=== PATIENT | female | born 1990 | race Caucasian/White ===

== ENCOUNTER → 2016-03-15 | Outpatient (CLI) | payer BC, MEDICAID ==
[~2016-03-15] MED LIST: DOCU10ELUD PO; IBUP80TA PO; MULTTAB20 PO; PERCOCET PO
[2016-03-15 13:18] LABS: BASO % 0.2 % (0.0-1.0); EOS % 0.3 % (0.0-3.0); LARGE UNSTAINED CELL # 0.2 K/mm3 (0.0-0.4); LARGE UNSTAINED CELL % 1.6 % (0.0-4.0); LYMPH # 1.7 K/mm3 (1.5-6.5); LYMPH % 15.8 % (24.0-44.0); MEAN CORPUSCULAR HEMOGLOBIN 30.9 pg (27.0-33.0); MEAN CORPUSCULAR HGB CONC 34.2 g/dl (32.0-36.5); MEAN CORPUSCULAR VOLUME 90.3 fl (80.0-96.0); MONO # 0.4 K/mm3 (0.0-0.8); MONO % 4.1 % (0.0-5.0); NEUTROPHILS # 8.1 K/mm3 (1.8-7.7); NEUTROPHILS % 77.9 % (36.0-66.0); PLATELET COUNT, AUTOMATED 237 k/mm3 (150-450); RED CELL DISTRIBUTION WIDTH 12.8 % (11.5-14.5); WHITE BLOOD COUNT 10.4 K/mm3 (4.0-10.0)
== END | disposition home or self-care (01) ==
LOC: M LAB 12:10
PROVIDERS: ATTEND Specialist
DX: Z34.82 Encounter for supervision of other normal pregnancy, second trimester (principal); Z36 Encounter for antenatal screening of mother; Z3A.00 Weeks of gestation of pregnancy not specified

== ENCOUNTER 2016-04-03 07:43 | Outpatient (CLI) | payer BC, MEDICAID ==
[~2016-04-03] VITALS: Ht 157.5 cm; Wt 105.0 kg
[2016-04-03 08:00] VITALS: BP 113/62
[2016-04-03] MEDS ORDERED: OSELTAMIVIR PHOSPHATE 75 MG CAP (TAMIFLU) PO SCH (09:00)
[2016-04-03] MEDS ORDERED: PROMETHAZINE 25 MG SUPP PR PRN (09:15)
--- NOTE | 2016-04-03 12:05 | IPNPDOC ---
Obstetrical Progress Note Date of Service The patient was seen on 04/03/16 at 11:00. Progress Note SUBJECTIVE: Patient is a 25 year-old female who a at 29 weeks 3 days gestation with an USHA of 06/16/16 based off of her 1st trimester ultrasound. She initiated care in her 1st trimester with AWP. Her has been complicated by a history of previous with delivery at 35 weeks gestation d/t PPROM. She presented to L&D with complaints of vomiting and cramping. Patient reports that her son was diagnosed with the flu 2 days ago. Denies having a fever. Reports that she started getting nauseous yesterday and woke up at 4 am vomiting. Reports that she has been unable to keep anything down since yesterday. Denies leaking of fluid, contractions, or vaginal bleeding. Reports active movement and lower abdominal cramping that is mild. Allergies: morphine and zofran Current medications: vitamins Past medical history: childhood varicella, seasonal allergies Surgical: umbilical hernia repair 2012, c/s 2012 OBJECTIVE: FHR baseline 130, moderate variability, 10x10 accelerations, no decelerations. Two 40 second contractions noted on NST. Respiratory: respirations regular. No apparent distress or use of accessory muscles. Abdomen : gravid. Neurological: A+Ox3. VITAL SIGNS: Please see below. ASSESSMENT: IUP @ 29 weeks 3 days, viral stomach bug, prophylactic treatment of the flu PLAN: Patient given 1 dose of Tamiflu PO and a dose of phenergan 25 mg SC. Script called in for prophylactic Tamiflu and phenergan. Patient discharged to home with family member. Education and discharge instructions given. Reviewed access to care, FKC, labor signs and symptoms, and danger signs to report. Follow up for routine OB care. Dr. Ames aware of plan of care. VS, I&O, 24H, Fishbone VS, I&O, 24H, Fishbone Vital Signs Date Time Temp Pulse Resp B/P Pulse Ox O2 Delivery O2 Flow Rate FiO2 04/03/16 08:00 97.8 100 18 113/62 XIOMY PAZ CNM Apr 03, 2016 11:34
== END 2016-04-03 09:38 | disposition home or self-care (01) ==
LOC: M LDO 07:43
PROVIDERS: ATTEND Obstetrics & Gynecology
DX: O98.513 Other viral diseases complicating pregnancy, third trimester (principal); Z3A.29 29 weeks gestation of pregnancy

== ENCOUNTER 2016-04-14 13:52 | Outpatient (CLI) | payer BC, MEDICAID ==
[~2016-04-14] VITALS: Ht 157.5 cm; Wt 105.0 kg
[2016-04-14 14:04] VITALS: BP 127/67
[2016-04-14 15:03] LABS: BASO % 0.3 % (0.0-1.0); EOS % 0.3 % (0.0-3.0); LARGE UNSTAINED CELL # 0.2 K/mm3 (0.0-0.4); LARGE UNSTAINED CELL % 2.1 % (0.0-4.0); LYMPH # 1.8 K/mm3 (1.5-6.5); LYMPH % 16.3 % (24.0-44.0); MEAN CORPUSCULAR HEMOGLOBIN 29.6 pg (27.0-33.0); MEAN CORPUSCULAR HGB CONC 33.1 g/dl (32.0-36.5); MEAN CORPUSCULAR VOLUME 89.4 fl (80.0-96.0); MONO # 0.3 K/mm3 (0.0-0.8); MONO % 2.9 % (0.0-5.0); NEUTROPHILS # 8.5 K/mm3 (1.8-7.7); NEUTROPHILS % 78.1 % (36.0-66.0); PLATELET COUNT, AUTOMATED 240 k/mm3 (150-450); RED CELL DISTRIBUTION WIDTH 12.6 % (11.5-14.5); WHITE BLOOD COUNT 10.9 K/mm3 (4.0-10.0)
--- NOTE | 2016-04-14 16:26 | REP ---
Clinical: Biophysical profile. Comparison: 02/05/2016 . Findings: Examination demonstrates a single live intrauterine in cephalic presentation. motion is identified by technologist. Placenta is noted posteriorly and grade one without evidence for placenta previa or abruption. Amniotic fluid volume is normal. Cervix measures 3.9 cm in length and appears closed. Nuchal cord cannot be excluded. Gestational age by LMP 31 weeks 0 days with USHA 06/16/2016 . Gestational age by current measurements 30 weeks 1 day with USHA 06/22/2016 . FHR equals 140 beats per minute. BPD 7.6 cm 30 weeks 2 days HC 28.5 cm 31 weeks 2 days AC 26.5 cm 30 weeks 4 days FL 5.7 cm 30 weeks 0 days HL 4.8 cm 28 weeks 1 day HC/AC ratio 1.07 Estimated weight 1576 grams ( 31st percentile). Biophysical profile score equals 8/8. Amniotic fluid index equals 10.5 cm (8.8 - 23.8) Umbilical cord SD ratio equals 3.14 (2.50 - 3.50) Impression: Single live advanced gestation in cephalic presentation demonstrating appropriate interval growth. Nuchal cord cannot be excluded. Biophysical profile score equals 8/8. Amniotic fluid index normal. Estimated weight normal. Signed by Esteban Dubon MD 04/14/2016 04:16 P
== END 2016-04-14 18:10 | disposition home or self-care (01) ==
LOC: M LDO 13:52
PROVIDERS: ATTEND Advanced Practice Midwife
DX: O26.893 Other specified pregnancy related conditions, third trimester (principal); O99.89 Other specified diseases and conditions complicating pregnancy, childbirth and the puerperium; W10.9XXA Fall (on) (from) unspecified stairs and steps, initial encounter; Y92.9 Unspecified place or not applicable; Y93.9 Activity, unspecified; Y99.9 Unspecified external cause status; Z3A.31 31 weeks gestation of pregnancy

== ENCOUNTER → 2016-05-02 | Outpatient (REF) | payer BC, MEDICAID | LOC: M LAB REF 16:55 | PROVIDERS: ATTEND Advanced Practice Midwife | DX: Z34.83 Encounter for supervision of other normal pregnancy, third trimester (principal); Z36 Encounter for antenatal screening of mother; Z3A.00 Weeks of gestation of pregnancy not specified ==

== ENCOUNTER 2016-05-05 17:40 | Outpatient (CLI) | payer BC, MEDICAID ==
[~2016-05-05] VITALS: Ht 157.5 cm; Wt 108.0 kg
[2016-05-05 17:53] VITALS: BP 124/67
== END 2016-05-05 19:03 | disposition home or self-care (01) ==
LOC: M LDO 17:40
PROVIDERS: ATTEND Obstetrics & Gynecology
DX: O26.893 Other specified pregnancy related conditions, third trimester (principal); Z3A.34 34 weeks gestation of pregnancy

== ENCOUNTER 2016-05-26 18:40 | Outpatient (CLI) | payer BC, MEDICAID ==
[~2016-05-26] VITALS: Ht 157.5 cm; Wt 116.0 kg
[2016-05-26 18:53] VITALS: BP 136/63
== END 2016-05-26 21:54 | disposition home or self-care (01) ==
LOC: M LDO 18:40
PROVIDERS: ATTEND Advanced Practice Midwife
DX: O47.1 False labor at or after 37 completed weeks of gestation (principal); Z3A.37 37 weeks gestation of pregnancy

== ENCOUNTER → 2016-06-01 | Outpatient (REF) | payer BC, MEDICAID ==
[~2016-06-01] MED LIST changes: +PRENTAB9 PO
== END ==
LOC: M LAB REF 17:09
PROVIDERS: ATTEND Advanced Practice Midwife
DX: O99.213 Obesity complicating pregnancy, third trimester (principal); Z36 Encounter for antenatal screening of mother; Z3A.00 Weeks of gestation of pregnancy not specified

== ENCOUNTER 2016-06-09 05:04 | Inpatient (IN) | payer BC, MEDICAID ==
[2016-06-09] VITALS (8 sets, daily range): BP systolic 110–138; BP diastolic 58–72
[~2016-06-09] VITALS: Ht 157.5 cm; Wt 116.0 kg
[2016-06-09] MEDS ORDERED: LR 1,000 ML IV ONE (05:30)
[2016-06-09] MEDS ORDERED: BICITRA 30ML SOLN UDC PO ONE (05:30)
[2016-06-09] MEDS ORDERED: LR 1,000 ML IV SCH ×2 (05:30→09:15)
[2016-06-09 05:55] LABS: MEAN CORPUSCULAR HEMOGLOBIN 29.4 pg (27.0-33.0); MEAN CORPUSCULAR HGB CONC 33.9 g/dl (32.0-36.5); MEAN CORPUSCULAR VOLUME 86.5 fl (80.0-96.0); RED CELL DISTRIBUTION WIDTH 13.5 % (11.5-14.5); WHITE BLOOD COUNT 9.6 K/mm3 (4.0-10.0)
[2016-06-09] MEDS ORDERED: METOCLOPRAMIDE INJ 10MG/2ML VIAL (J2765) IV PRN ×2 (07:30→09:15)
[2016-06-09] MEDS ORDERED: NALBUPHINE HCL 10 MG/ML AMP (J2300) IV PRN (07:30)
[2016-06-09] MEDS ORDERED: NALOXONE INJ 0.4 MG/1 ML VIAL (J2310) IV PRN ×2 (07:30)
[2016-06-09] MEDS ORDERED: ePHEDrine SULFATE 25 MG/5 ML(5MG/ML) SYRINGE As Ordered ONE (07:52)
[2016-06-09] MEDS ORDERED: OXYTOCIN INJ 10 UNITS/ML VIAL (J2590) As Ordered ONE (07:52)
[2016-06-09] MEDS ORDERED: KETOROLAC 60 MG/2 ML VIAL (J1885) As Ordered ONE (08:09)
[2016-06-09] MEDS ORDERED: MEASLES,MUMPS,RUBELLA VACCINE INJ (MMR-II) (90707) SC SCH (08:45)
[2016-06-09] MEDS ORDERED: RHOGAM 300 MCG (1500 IU) INJ (J2790) IM SCH (08:45)
[2016-06-09] MEDS ORDERED: OXYTOCIN DRIP 30 UNITS in APPROPRIATE DILUENT 1 EA IV ONE (08:45)
[2016-06-09] MEDS ORDERED: PERCOCET 5MG/325MG TAB PO PRN (08:45)
[2016-06-09] MEDS ORDERED: MOM 30ML SUSPENSION UDC PO PRN (08:45)
[2016-06-09] MEDS ORDERED: fentaNYL 100 MCG/2 ML INJECTION (J3010) IV PRN (09:15)
[2016-06-09] MEDS: PRENATAL VITAMIN TAB PO SCH (11:30)
[2016-06-09] MEDS: KETOROLAC 30 MG/ML VIAL (J1885) IV SCH ×2 (14:09→20:22)
[2016-06-09] MEDS: PERCOCET 5MG/325MG TAB PO PRN (17:53)
[2016-06-09] MEDS: DOCUSATE SODIUM 100 MG CAP PO PRN (20:23)
[2016-06-10] MEDS: KETOROLAC 30 MG/ML VIAL (J1885) IV SCH (01:35)
[2016-06-10 01:53] VITALS: BP 125/81
[2016-06-10 06:00] VITALS: BP 127/72
[2016-06-10 07:14] LABS: MEAN CORPUSCULAR HEMOGLOBIN 29.4 pg (27.0-33.0); MEAN CORPUSCULAR HGB CONC 33.4 g/dl (32.0-36.5); MEAN CORPUSCULAR VOLUME 87.8 fl (80.0-96.0); RED CELL DISTRIBUTION WIDTH 13.5 % (11.5-14.5); WHITE BLOOD COUNT 10.8 K/mm3 (4.0-10.0)
[2016-06-10] MEDS: PRENATAL VITAMIN TAB PO SCH (07:45)
[2016-06-10] MEDS: LR 1,000 ML IV SCH ×3 (08:35→08:40)
[2016-06-10] MEDS: IBUPROFEN 800 MG TAB PO SCH ×2 (10:02→17:56)
[2016-06-10 10:10] VITALS: BP 132/60
[2016-06-10 14:05] VITALS: BP 131/75
[2016-06-10] MEDS ORDERED: IBUPROFEN 800 MG TAB PO SCH (16:00)
[2016-06-10 18:00] VITALS: BP 122/60
[2016-06-10] MEDS: DOCUSATE SODIUM 100 MG CAP PO PRN (19:36)
[2016-06-10] MEDS: PERCOCET 5MG/325MG TAB PO PRN (19:36)
[2016-06-10 21:46] VITALS: BP 122/59
[2016-06-11] MEDS: IBUPROFEN 800 MG TAB PO SCH ×2 (02:16→10:00)
[2016-06-11 05:57] VITALS: BP 127/70
[2016-06-11] MEDS: PRENATAL VITAMIN TAB PO SCH (09:00)
[2016-06-11] MEDS ORDERED: OXYC1TAB23 PO ×2 (09:43→10:07)
[2016-06-11] MEDS ORDERED: IBUP600T26 PO (09:44)
[2016-06-11] MEDS ORDERED: COLA100C3 PO (09:45)
== END 2016-06-11 10:55 | disposition home or self-care (01) | DRG 540 ==
LOC: M LDI 05:04 → EDSTATUS 07:30 → M OBS 10:30
PROVIDERS: ADMIT Obstetrics & Gynecology; ATTEND Obstetrics & Gynecology
PROC: 10D00Z1 Extraction of Products of Conception, Low, Open Approach (ICD-10-PCS; principal; 2016-06-09 07:30)
DX: O34.211 Maternal care for low transverse scar from previous cesarean delivery (principal); Z3A.39 39 weeks gestation of pregnancy; O99.214 Obesity complicating childbirth; E66.9 Obesity, unspecified; O99.824 Streptococcus B carrier state complicating childbirth; Z37.0 Single live birth; Z68.41 Body mass index [BMI] 40.0-44.9, adult

== ENCOUNTER 2016-09-18 09:47 | Emergency (ER) | payer BC, MEDICAID ==
[~2016-09-18] VITALS: Ht 157.5 cm; Wt 105.5 kg
[~2016-09-18 09:47] MED LIST changes: +COLA100C5 PO; +IBUP-1022 PO; +OXYC1TAB23 PO
[2016-09-18] MEDS ORDERED: CLAR1TAB2 PO (09:55)
[2016-09-18] MEDS ORDERED: ONDANSETRON 4 MG ORAL DISINTEGRATING TAB (S0181) PO ONE (10:15)
[2016-09-18] MEDS ORDERED: METOCLOPRAMIDE 10 MG TAB PO ONE (10:30)
[2016-09-18 10:34] LABS: BASO % 0.7 % (0.0-1.0); EOS # 0.1 K/mm3 (0.0-0.50); EOS % 2.3 % (0.0-3.0); LARGE UNSTAINED CELL # 0.1 K/mm3 (0.0-0.4); LARGE UNSTAINED CELL % 2.1 % (0.0-4.0); LYMPH # 1.4 K/mm3 (1.5-6.5); LYMPH % 24.9 % (24.0-44.0); MEAN CORPUSCULAR HEMOGLOBIN 28.3 pg (27.0-33.0); MEAN CORPUSCULAR HGB CONC 33.9 g/dl (32.0-36.5); MEAN CORPUSCULAR VOLUME 83.6 fl (80.0-96.0); MONO # 0.4 K/mm3 (0.0-0.8); MONO % 6.2 % (0.0-5.0); NEUTROPHILS # 3.7 K/mm3 (1.8-7.7); NEUTROPHILS % 63.8 % (36.0-66.0); PLATELET COUNT, AUTOMATED 246 k/mm3 (150-450); RED CELL DISTRIBUTION WIDTH 13.6 % (11.5-14.5); WHITE BLOOD COUNT 5.8 K/mm3 (4.0-10.0)
[2016-09-18 10:52] LABS: ANION GAP 9 MEQ/L (8-16); BLOOD UREA NITROGEN 10 MG/DL (7-18); CALCIUM LEVEL 8.7 MG/DL (8.5-10.1); CARBON DIOXIDE LEVEL 23 MEQ/L (21-32); CHLORIDE LEVEL 105 MEQ/L (98-107); CREATININE FOR GFR 0.65 MG/DL (0.55-1.02); GLOMERULAR FILTRATION RATE > 60.0 (>60); GLUCOSE, FASTING 105 MG/DL (70-105); POTASSIUM SERUM 3.5 MEQ/L (3.5-5.1); SODIUM LEVEL 137 MEQ/L (136-145)
[2016-09-18] MEDS ORDERED: METO10TA2 PO (11:33)
[2016-09-18] MEDS ORDERED: NITRO10CA PO (11:33)
[2016-09-18 11:45] VITALS: BP 133/75
== END 2016-09-18 11:47 | disposition home or self-care (01) ==
LOC: M ED 09:47
DX: N39.0 Urinary tract infection, site not specified (principal); R31.9 Hematuria, unspecified; K50.90 Crohn's disease, unspecified, without complications; R11.2 Nausea with vomiting, unspecified; Z79.899 Other long term (current) drug therapy

== ENCOUNTER 2016-09-20 12:00 | Emergency (ER) | payer BC, MEDICAID ==
[~2016-09-20] VITALS: Ht 157.5 cm; Wt 104.5 kg
[2016-09-20 12:00] VITALS: BP 128/78
[~2016-09-20 12:00] MED LIST changes: +CLAR1TAB2 PO; +METO10TA2 PO; +NITRO10CA PO
[2016-09-20] MEDS ORDERED: AMOX250C3 PO (12:08)
[2016-09-20] MEDS ORDERED: MUCI600T37 PO (12:36)
[2016-09-20] MEDS ORDERED: AUGM875T28 PO (12:36)
[2016-09-20] MEDS ORDERED: ALBU17IN INH (12:37)
== END 2016-09-20 12:50 | disposition home or self-care (01) ==
LOC: M ED 12:00
DX: J01.90 Acute sinusitis, unspecified (principal); J20.9 Acute bronchitis, unspecified; R51 Headache; R07.0 Pain in throat; Z79.899 Other long term (current) drug therapy; Z88.5 Allergy status to narcotic agent; Z88.8 Allergy status to other drugs, medicaments and biological substances

== ENCOUNTER → 2017-03-24 | Outpatient (REF) | payer BC, MEDICAID ==
[2017-03-24 12:40] LABS: HEMATOCRIT 37.9 % (36.0-47.0); HEMOGLOBIN 12.1 g/dl (12.0-16.0); MEAN CORPUSCULAR HEMOGLOBIN 28.1 pg (27.0-33.0); MEAN CORPUSCULAR HGB CONC 31.9 g/dl (32.0-36.5); MEAN CORPUSCULAR VOLUME 88.1 fl (80.0-96.0); PLATELET COUNT, AUTOMATED 261 10^3/uL (150-450); RED CELL DISTRIBUTION WIDTH 13.1 % (11.5-14.5); WHITE BLOOD COUNT 6.9 10^3/uL (4.0-10.0)
[2017-03-24 13:00] LABS: FOLATE 3.1 NG/ML; TOTAL 25(OH) VITAMIN D 12.6 NG/ML (30.0-100.0); VITAMIN B12 LEVEL 457 PG/ML
[2017-03-24 13:23] LABS: ALBUMIN 3.9 GM/DL (3.2-5.2); ALBUMIN/GLOBULIN RATIO 1.26 (1.00-1.93); ALKALINE PHOSPHATASE 110 U/L (45-117); ALT/SGPT 15 U/L (12-78); ANION GAP 7 MEQ/L (8-16); AST/SGOT 12 U/L (7-37); BILIRUBIN,TOTAL 0.5 MG/DL (0.2-1.0); BLOOD UREA NITROGEN 15 MG/DL (7-18); CALCIUM LEVEL 8.7 MG/DL (8.5-10.1); CARBON DIOXIDE LEVEL 28 MEQ/L (21-32); CHLORIDE LEVEL 106 MEQ/L (98-107); CHOLESTEROL LEVEL 125 MG/DL (<200); CHOLESTEROL RISK RATIO 2.906 (<5); CREATININE FOR GFR 0.65 MG/DL (0.55-1.02); FREE T4 1.08 NG/DL (0.76-1.46); GLOMERULAR FILTRATION RATE > 60.0 (>60); GLUCOSE, FASTING 96 MG/DL (70-100); HDL CHOLESTEROL 43 MG/DL (>40); NON-HDL-C 82 MG/DL; POTASSIUM SERUM 4.3 MEQ/L (3.5-5.1); SODIUM LEVEL 141 MEQ/L (136-145); THYROID STIMULATING HORMONE 0.744 uIU/ML (0.358-3.740); TRIGLYCERIDES LEVEL 55 MG/DL (<150)
== END ==
LOC: M SFHCPLAZ 09:09
DX: Z00.00 Encounter for general adult medical examination without abnormal findings (principal); Z13.1 Encounter for screening for diabetes mellitus; E66.01 Morbid (severe) obesity due to excess calories; Z13.220 Encounter for screening for lipoid disorders; Z13.21 Encounter for screening for nutritional disorder
CPT/HCPCS: 82746

== ENCOUNTER 2017-04-02 10:49 | Emergency (ER) | payer BC, MEDICAID | END 2017-04-02 11:26 | disposition home or self-care (01) | LOC: M ED 10:49 | DX: J32.9 Chronic sinusitis, unspecified (principal); J02.9 Acute pharyngitis, unspecified; Z88.8 Allergy status to other drugs, medicaments and biological substances; Z88.5 Allergy status to narcotic agent | CPT/HCPCS: 99282 ==

== ENCOUNTER → 2017-06-28 | Outpatient (REF) | payer BC, MEDICAID ==
[2017-06-28 14:09] LABS: ALBUMIN/GLOBULIN RATIO 1.14 (1.00-1.93); ALKALINE PHOSPHATASE 117 U/L (45-117); ALT/SGPT 17 U/L (12-78); ANION GAP 8 MEQ/L (8-16); AST/SGOT 12 U/L (7-37); BILIRUBIN,TOTAL 0.6 MG/DL (0.2-1.0); BLOOD UREA NITROGEN 13 MG/DL (7-18); CALCIUM LEVEL 8.8 MG/DL (8.5-10.1); CARBON DIOXIDE LEVEL 27 MEQ/L (21-32); CHLORIDE LEVEL 104 MEQ/L (98-107); CREATININE FOR GFR 0.63 MG/DL (0.55-1.30); GLOMERULAR FILTRATION RATE > 60.0 (>60); GLUCOSE, FASTING 85 MG/DL (70-100); POTASSIUM SERUM 4.4 MEQ/L (3.5-5.1); SODIUM LEVEL 139 MEQ/L (136-145); TOTAL PROTEIN 7.5 GM/DL (6.4-8.2)
[2017-06-28 14:53] LABS: TOTAL 25(OH) VITAMIN D 35.1 NG/ML (30.0-100.0)
== END ==
LOC: M SFHCPLAZ 11:15
DX: E55.9 Vitamin D deficiency, unspecified (principal)
CPT/HCPCS: 80053

== ENCOUNTER 2018-01-01 08:12 | Emergency (ER) | payer OTHER, BC, MEDICAID ==
[2018-01-01] MEDS: IBUPROFEN 800 MG TAB PO (09:08)
== END 2018-01-01 09:26 | disposition home or self-care (01) ==
LOC: M ED 08:12
DX: S80.12XA Contusion of left lower leg, initial encounter (principal); W23.0XXA Caught, crushed, jammed, or pinched between moving objects, initial encounter; Y92.018 Other place in single-family (private) house as the place of occurrence of the external cause; Z79.899 Other long term (current) drug therapy; Z88.5 Allergy status to narcotic agent; Z88.8 Allergy status to other drugs, medicaments and biological substances
CPT/HCPCS: 73590

== ENCOUNTER 2018-02-08 13:03 | Emergency (ER) | payer BC, MEDICAID, OTHER ==
[2018-02-08] MEDS: METOCLOPRAMIDE INJ 10MG/2ML VIAL (J2765) IV (13:47)
[2018-02-08] MEDS: NS 1,000 ML IV (13:47)
[2018-02-08] MEDS: KETOROLAC 30 MG/ML VIAL (J1885) IV (13:47)
[2018-02-08 13:49] LABS: BASO # 0.1 10^3/uL (0.0-0.2); BASO % 0.5 % (0.0-1.0); EOS % 0.3 % (0.0-3.0); HEMATOCRIT 40.3 % (36.0-47.0); HEMOGLOBIN 13.3 g/dl (12.0-15.5); IMMATURE GRANULOCYTE % 0.5 % (0-3.0); LYMPH # 3.3 10^3/uL (1.5-6.5); LYMPH % 29.8 % (24.0-44.0); MEAN CORPUSCULAR HEMOGLOBIN 29.4 pg (27.0-33.0); MONO # 0.7 10^3/uL (0.0-0.8); MONO % 6.8 % (0.0-5.0); NEUTROPHILS # 6.8 10^3/uL (1.8-7.7); NEUTROPHILS % 62.1 % (36.0-66.0); PLATELET COUNT, AUTOMATED 252 10^3/uL (150-450); RED BLOOD COUNT 4.53 10^6/uL (4.00-5.40)
[2018-02-08] MEDS: GASTROGRAFIN SOLUTION 30ML PO ×2 (13:57→14:26)
[2018-02-08 14:00] LABS: KETONE, URINE AUTO RFX NEGATIVE (NEGATIVE); LEUKOCYTE ESTERASE UR AUTO RFX NEGATIVE (NEGATIVE); MUCUS, URINE RFX SMALL (NEGATIVE); NITRITE, URINE AUTO RFX NEGATIVE (NEGATIVE); RBC, URINE AUTO RFX 1 /HPF (0-3); SPECIFIC GRAVITY UR AUTO RFX 1.028 (1.002-1.035); SQUAM EPITHELIAL CELL UR AURFX 5 /HPF (0-6); WBC, URINE AUTO RFX 1 /HPF (0-3)
[2018-02-08 14:13] LABS: ALBUMIN 3.9 GM/DL (3.2-5.2); ALBUMIN/GLOBULIN RATIO 1.18 (1.00-1.93); ALKALINE PHOSPHATASE 124 U/L (45-117); ALT/SGPT 18 U/L (12-78); ANION GAP 6 MEQ/L (8-16); AST/SGOT 15 U/L (7-37); BILIRUBIN,DIRECT 0.1 MG/DL (0.0-0.2); BILIRUBIN,TOTAL 0.5 MG/DL (0.2-1.0); BLOOD UREA NITROGEN 13 MG/DL (7-18); C REACTIVE PROTEIN QUANTITATIV < 0.30 MG/DL (0.00-0.30); CALCIUM LEVEL 8.7 MG/DL (8.5-10.1); CARBON DIOXIDE LEVEL 28 MEQ/L (21-32); CHLORIDE LEVEL 105 MEQ/L (98-107); CREATININE FOR GFR 0.82 MG/DL (0.55-1.30); GLOMERULAR FILTRATION RATE > 60.0 (>60); GLUCOSE, FASTING 71 MG/DL (70-100); LIPASE 123 U/L (73-393); POTASSIUM SERUM 3.8 MEQ/L (3.5-5.1); SODIUM LEVEL 139 MEQ/L (136-145); TOTAL PROTEIN 7.2 GM/DL (6.4-8.2)
[2018-02-08 14:22] LABS: CONTROL LINE HCG INT CTR LINE PRESENT; HCG, SERUM QUALITATIVE NEGATIVE (NEGATIVE)
[2018-02-08] MEDS ORDERED: ISOVUE-370 76% 100ML VIAL (Q9967) As Ordered (15:27)
== END 2018-02-08 16:23 | disposition home or self-care (01) ==
LOC: M ED 13:03
DX: N83.299 Other ovarian cyst, unspecified side (principal); N20.0 Calculus of kidney; Z88.5 Allergy status to narcotic agent; Z88.8 Allergy status to other drugs, medicaments and biological substances
CPT/HCPCS: Q9963

== ENCOUNTER 2018-02-10 11:45 | Emergency (ER) | payer OTHER, BC, MEDICAID ==
[2018-02-10 12:04] LABS: BEDSIDE GLUCOSE 99 MG/DL (70-105)
[2018-02-10] MEDS: NS 1,000 ML IV (12:37)
[2018-02-10 12:50] LABS: BASO # 0.1 10^3/uL (0.0-0.2); BASO % 0.5 % (0.0-1.0); EOS % 0.2 % (0.0-3.0); HEMATOCRIT 39.1 % (36.0-47.0); IMMATURE GRANULOCYTE % 0.4 % (0-3.0); LYMPH # 2.1 10^3/uL (1.5-6.5); LYMPH % 20.6 % (24.0-44.0); MEAN CORPUSCULAR HEMOGLOBIN 29.5 pg (27.0-33.0); MEAN CORPUSCULAR HGB CONC 33.2 g/dl (32.0-36.5); MEAN CORPUSCULAR VOLUME 88.9 fl (80.0-96.0); MONO # 0.7 10^3/uL (0.0-0.8); MONO % 6.5 % (0.0-5.0); NEUTROPHILS # 7.4 10^3/uL (1.8-7.7); NEUTROPHILS % 71.8 % (36.0-66.0); PLATELET COUNT, AUTOMATED 255 10^3/uL (150-450); RED CELL DISTRIBUTION WIDTH 12.7 % (11.5-14.5); WHITE BLOOD COUNT 10.3 10^3/uL (4.0-10.0)
[2018-02-10 12:51] LABS: KETONE, URINE AUTO RFX NEGATIVE (NEGATIVE); LEUKOCYTE ESTERASE UR AUTO RFX NEGATIVE (NEGATIVE); MUCUS, URINE RFX SMALL (NEGATIVE); NITRITE, URINE AUTO RFX NEGATIVE (NEGATIVE); RBC, URINE AUTO RFX 3 /HPF (0-3); SPECIFIC GRAVITY UR AUTO RFX 1.009 (1.002-1.035); SQUAM EPITHELIAL CELL UR AURFX 2 /HPF (0-6); WBC, URINE AUTO RFX 1 /HPF (0-3)
[2018-02-10 13:01] LABS: INR 0.98; PARTIAL THROMBOPLASTIN TIME 24.9 SECONDS (25.4-37.6); PROTHROMBIN TIME 13.1 SECONDS (12.1-14.4)
[2018-02-10 13:08] LABS: AMPHETAMINES LEVEL URINE NEGATIVE (NEGATIVE); BARBITURATES URINE NEGATIVE (NEGATIVE); BENZODIAZEPINES URINE NEGATIVE (NEGATIVE); CANNABINOIDS URINE POSITIVE (NEGATIVE); COCAINE METABOLITE URINE NEGATIVE (NEGATIVE); METHADONE URINE NEGATIVE (NEGATIVE); OPIATES URINE NEGATIVE (NEGATIVE); PHENCYCLIDINE URINE NEGATIVE (NEGATIVE)
[2018-02-10 13:19] LABS: CONTROL LINE HCG INT CTR LINE PRESENT; HCG, SERUM QUALITATIVE NEGATIVE (NEGATIVE)
[2018-02-10 13:35] LABS: ANION GAP 8 MEQ/L (8-16); BLOOD UREA NITROGEN 10 MG/DL (7-18); CALCIUM LEVEL 8.7 MG/DL (8.5-10.1); CARBON DIOXIDE LEVEL 27 MEQ/L (21-32); CHLORIDE LEVEL 105 MEQ/L (98-107); CK-MB VALUE MASS < 1.0 NG/ML (<3.6); CPK CREATINE PHOSPHOKINASE 125 U/L (26-192); CREATININE FOR GFR 0.68 MG/DL (0.55-1.30); ETHYL ALCOHOL (ETHANOL) < 0.003 % (0.000-0.010); FREE T4 0.93 NG/DL (0.76-1.46); GLOMERULAR FILTRATION RATE > 60.0 (>60); GLUCOSE, FASTING 73 MG/DL (70-100); POTASSIUM SERUM 3.9 MEQ/L (3.5-5.1); SODIUM LEVEL 140 MEQ/L (136-145); TROPONIN I < 0.02 NG/ML (< 0.10)
== END 2018-02-10 15:05 | disposition home or self-care (01) ==
LOC: M ED 11:45
DX: I95.1 Orthostatic hypotension (principal); K21.9 Gastro-esophageal reflux disease without esophagitis; Z82.49 Family history of ischemic heart disease and other diseases of the circulatory system; Z88.5 Allergy status to narcotic agent; Z88.8 Allergy status to other drugs, medicaments and biological substances
CPT/HCPCS: 71045

== ENCOUNTER 2018-02-25 09:02 | Emergency (ER) | payer BC, MEDICAID ==
[~2018-02-25] VITALS: Ht 157.5 cm; Wt 100.0 kg
[~2018-02-25 09:02] MED LIST changes: +ALBU17IN INH; +AMOX250C3 PO; +AUGM875T28 PO; +CETI5TAB2 PO; +CLAR10CA3 PO; +MUCI600T37 PO; +NITR-67 PO; -NITRO10CA PO; +NORCOTAB PO; +REGL10TA6 PO; +[UNRECOGNIZED DRUG - CODE] PO
[2018-02-25] MEDS ORDERED: OMEP10CASR PO (09:16)
[2018-02-25 10:06] LABS: CPK CREATINE PHOSPHOKINASE 150 U/L (26-192); MB/CK RELATIVE INDEX 0.87 (< OR =4); TROPONIN I < 0.02 NG/ML (< 0.10)
--- NOTE | 2018-02-25 10:16 | REP ---
Clinical: Chest pain . Comparison: 02/10/2018 . Technique: PA and lateral. Findings: The mediastinum and cardiac silhouette are normal. The lung cifuentes are clear and without acute consolidation, effusion, or pneumothorax. The skeletal structures are intact and normal. Impression: 1. No acute cardiopulmonary process. Electronically Signed by Esteban Dubon MD 02/25/2018 10:08 A
[2018-02-25 10:39] VITALS: BP 109/59
--- NOTE | 2018-02-25 17:28 | ECGEPIP ---
Stationary ECG Study [facility] - ED Test Date: 2018-02-25 Pat Name: SHELBY JACOBSON Department: Room: - Gender: F [employer] Equipment Supervisor: blaise : 1990 Requested By: Ran Gaviria Order Number: [id number] Reading MD: Shelby Mckee Measurements Intervals [place] Rate: 72 P: 34 HI: 188 QRS: 21 QRSD: 89 T: 16 QT: 356 QTc: 391 Interpretive Statements SINUS RHYTHM SIMILAR 02/10/18 Electronically Signed On 02-25-2018 17:28:00 EST by Shelby Mckee
== END 2018-02-25 10:42 | disposition home or self-care (01) ==
LOC: M ED 09:02 → EDBD 09:02 → M ED 10:42
DX: F41.9 Anxiety disorder, unspecified (principal); K21.9 Gastro-esophageal reflux disease without esophagitis; J30.2 Other seasonal allergic rhinitis; Z87.42 Personal history of other diseases of the female genital tract; F12.90 Cannabis use, unspecified, uncomplicated; Z88.5 Allergy status to narcotic agent; Z88.8 Allergy status to other drugs, medicaments and biological substances; Z79.899 Other long term (current) drug therapy

== ENCOUNTER → 2018-03-15 | Outpatient (REF) | payer BC, MEDICAID ==
[~2018-03-15] MED LIST changes: +OMEP10CASR PO
== END ==
LOC: M LAB REF 17:42
PROVIDERS: ATTEND Advanced Practice Midwife
DX: Z12.4 Encounter for screening for malignant neoplasm of cervix (principal)

== ENCOUNTER → 2018-04-04 | Outpatient (REF) | payer BC, MEDICAID ==
[2018-04-04 12:55] LABS: BLOOD UREA NITROGEN 15 MG/DL (7-18); CALCIUM LEVEL 8.6 MG/DL (8.5-10.1); CARBON DIOXIDE LEVEL 29 MEQ/L (21-32); CHLORIDE LEVEL 105 MEQ/L (98-107); CREATININE FOR GFR 0.65 MG/DL (0.55-1.30); FREE T4 1.01 NG/DL (0.76-1.46); GLOMERULAR FILTRATION RATE > 60.0 (>60); GLUCOSE, FASTING 80 MG/DL (70-100); POTASSIUM SERUM 4.2 MEQ/L (3.5-5.1); SODIUM LEVEL 139 MEQ/L (136-145)
[2018-04-04 12:58] LABS: TOTAL 25(OH) VITAMIN D 17.2 NG/ML (30.0-100.0)
== END ==
LOC: M LABDRAWP 10:16
PROVIDERS: ATTEND Nurse Practitioner Family
DX: E66.01 Morbid (severe) obesity due to excess calories (principal); I95.1 Orthostatic hypotension; E55.9 Vitamin D deficiency, unspecified

== ENCOUNTER 2018-04-10 11:42 | Emergency (ER) | payer BC, MEDICAID ==
[~2018-04-10] VITALS: Ht 157.5 cm; Wt 102.7 kg
[2018-04-10 12:34] LABS: BASO # 0.1 10^3/uL (0.0-0.2); BASO % 0.9 % (0.0-1.0); EOS % 0.4 % (0.0-3.0); HEMATOCRIT 39.3 % (36.0-47.0); HEMOGLOBIN 13.2 g/dl (12.0-15.5); LYMPH # 2.2 10^3/uL (1.5-6.5); LYMPH % 25.4 % (24.0-44.0); MEAN CORPUSCULAR HEMOGLOBIN 29.3 pg (27.0-33.0); MEAN CORPUSCULAR HGB CONC 33.6 g/dl (32.0-36.5); MEAN CORPUSCULAR VOLUME 87.3 fl (80.0-96.0); MONO # 0.5 10^3/uL (0.0-0.8); MONO % 5.4 % (0.0-5.0); NEUTROPHILS # 5.7 10^3/uL (1.8-7.7); NEUTROPHILS % 67.5 % (36.0-66.0); PLATELET COUNT, AUTOMATED 263 10^3/uL (150-450); WHITE BLOOD COUNT 8.5 10^3/uL (4.0-10.0)
[2018-04-10 12:57] LABS: BLOOD UREA NITROGEN 12 MG/DL (7-18); CALCIUM LEVEL 8.7 MG/DL (8.5-10.1); CARBON DIOXIDE LEVEL 26 MEQ/L (21-32); CHLORIDE LEVEL 105 MEQ/L (98-107); CREATININE FOR GFR 0.71 MG/DL (0.55-1.30); GLOMERULAR FILTRATION RATE > 60.0 (>60); GLUCOSE, FASTING 96 MG/DL (70-100); POTASSIUM SERUM 3.9 MEQ/L (3.5-5.1); SODIUM LEVEL 139 MEQ/L (136-145)
--- NOTE | 2018-04-10 13:38 | REP ---
PELVIC ULTRASOUND: Real-time sonographic evaluation of the pelvis was performed utilizing transabdominal and endovaginal technique. The urinary bladder is empty. The uterus measures 8.1 x 3.4 x 4.8 cm. Endometrial thickness is 4 mm. section scar is identified and there is a small amount of fluid in that location. Right ovary measures 3.3 x 2.4 x 2.9 cm and left ovary 3.4 x 3.0 x 3.1 cm. Complex dominant follicle in the left ovary measures 1.7 cm. No adnexal mass is seen. There is no ovarian torsion, resistive index right ovary 0.53 and left ovary 0.51 with duplex Doppler evaluation. Trace free fluid is seen adjacent to the left ovary. IMPRESSION: Fluid in scar. Complex dominant follicle left ovary 1.7 cm in diameter with no torsion. Trace free fluid adjacent to the left ovary. Electronically Signed by Johnny Alba MD 04/10/2018 05:27 P
[2018-04-10 13:58] VITALS: BP 119/72
[2018-04-10] MEDS ORDERED: NORCOTAB PO (13:59)
== END 2018-04-10 14:05 | disposition home or self-care (01) ==
LOC: M ED 11:42
DX: N83.209 Unspecified ovarian cyst, unspecified side (principal); L73.9 Follicular disorder, unspecified

== ENCOUNTER → 2018-04-19 | Outpatient (CLI) | payer BC, MEDICAID ==
[2018-04-19 18:48] LABS: HCG, SERUM QUALITATIVE NEGATIVE (NEGATIVE)
== END ==
LOC: M SMT 15:16
PROVIDERS: ATTEND Advanced Practice Midwife
DX: N91.1 Secondary amenorrhea (principal)

== ENCOUNTER 2018-05-06 11:27 | Emergency (ER) | payer BC, MEDICAID ==
[~2018-05-06] VITALS: Ht 157.5 cm; Wt 104.5 kg
[2018-05-06 12:52] LABS: INFLUENZA A AMPLIFICATION NEGATIVE (NEGATIVE); INFLUENZA B AMPLIFICATION NEGATIVE (NEGATIVE)
[2018-05-06 13:36] VITALS: BP 121/72
== END 2018-05-06 13:34 | disposition home or self-care (01) ==
LOC: M ED 11:27
DX: B34.9 Viral infection, unspecified (principal); K21.9 Gastro-esophageal reflux disease without esophagitis; Z88.8 Allergy status to other drugs, medicaments and biological substances; Z88.5 Allergy status to narcotic agent; Z79.899 Other long term (current) drug therapy

== ENCOUNTER 2018-06-24 09:42 | Emergency (ER) | payer BC, MEDICAID ==
[~2018-06-24] VITALS: Ht 157.5 cm; Wt 104.5 kg
[~2018-06-24 09:42] MED LIST changes: -DOCU10ELUD PO; +DOCU5LIQ PO; +HYDR-3715 PO; -NORCOTAB PO; -PERCOCET PO
[2018-06-24] MEDS ORDERED: NORCO, ANEXSIA 5/325MG TABLET (HYDROcodone/ACETAMINOPHEN) PO ONE (10:15)
[2018-06-24] MEDS ORDERED: NAPR-837 PO (12:33)
--- NOTE | 2018-06-24 12:39 | REP ---
NON-OB PELVIC ULTRASOUND: HISTORY: Left pelvic pain. COMPARISON: 04/10/2018 The uterus measures 5.6 cm in transverse x 4.2 cm in AP x 7.8 cm in cephalocaudal dimensions. The endometrium measures 6.5 mm. The right ovary measures 2.6 x 1.8 x 1.5 cm. The left ovary measures 3.7 x 2.3 x 2.9 cm. A complex cyst is present in the left ovary. This measures 2.5 x 1.7 x 2.0 cm. A small amount of free fluid is present adjacent to the left ovary and in the cul-de-sac. IMPRESSION: 1. There is a complex cyst in the left ovary measuring 2.5 cm in maximum dimension. This is slightly increased in size compared to the previous study. 2. There is a small amount of free fluid adjacent to the left ovary and in the cul-de-sac. Electronically Signed by Murray Shahid MD 06/24/2018 12:47 P
[2018-06-24 12:40] VITALS: BP 131/74
== END 2018-06-24 12:41 | disposition home or self-care (01) ==
LOC: M ED 09:42
DX: N83.202 Unspecified ovarian cyst, left side (principal); K21.9 Gastro-esophageal reflux disease without esophagitis; Z88.5 Allergy status to narcotic agent

== ENCOUNTER → 2018-08-02 | Outpatient (REF) | payer BC, MEDICAID ==
[~2018-08-02] MED LIST changes: +NAPR-837 PO
== END ==
LOC: M SFHCPLAZ 13:57
PROVIDERS: ATTEND Nurse Practitioner Family
DX: E55.9 Vitamin D deficiency, unspecified (principal)

== ENCOUNTER 2018-09-04 10:25 | Emergency (ER) | payer BC, MEDICAID ==
[~2018-09-04] VITALS: Ht 157.5 cm; Wt 100.5 kg
[2018-09-04] MEDS ORDERED: vit d (10:30)
[2018-09-04] MEDS ORDERED: acid reflux med (10:30)
[2018-09-04] MEDS ORDERED: CLAR10CA3 PO (10:30)
[2018-09-04 13:04] VITALS: BP 133/80
== END 2018-09-04 13:06 | disposition home or self-care (01) ==
LOC: M ED 10:25
DX: N64.4 Mastodynia (principal); N91.1 Secondary amenorrhea; K21.9 Gastro-esophageal reflux disease without esophagitis; Z79.899 Other long term (current) drug therapy; Z88.5 Allergy status to narcotic agent

== ENCOUNTER 2018-09-11 08:13 | Emergency (ER) | payer BC, MEDICAID ==
[~2018-09-11] VITALS: Ht 157.5 cm; Wt 99.2 kg
[~2018-09-11 08:13] MED LIST changes: +acid reflux med; +vit d
[2018-09-11] MEDS ORDERED: METOCLOPRAMIDE INJ 10MG/2ML VIAL (J2765) IV ONE (09:15)
[2018-09-11] MEDS ORDERED: NS 1,000 ML IV ONE (09:30)
[2018-09-11 10:40] LABS: BASO # 0.1 10^3/uL (0.0-0.2); BASO % 0.8 % (0.0-1.0); EOS % 0.2 % (0.0-3.0); HEMATOCRIT 41.9 % (36.0-47.0); HEMOGLOBIN 13.9 g/dl (12.0-15.5); LYMPH # 2.4 10^3/uL (1.5-6.5); LYMPH % 38.4 % (24.0-44.0); MEAN CORPUSCULAR HEMOGLOBIN 29.5 pg (27.0-33.0); MEAN CORPUSCULAR HGB CONC 33.2 g/dl (32.0-36.5); MONO # 0.4 10^3/uL (0.0-0.8); MONO % 5.6 % (0.0-5.0); NEUTROPHILS # 3.4 10^3/uL (1.8-7.7); NEUTROPHILS % 54.7 % (36.0-66.0); PLATELET COUNT, AUTOMATED 247 10^3/uL (150-450); RED BLOOD COUNT 4.71 10^6/uL (4.00-5.40); WHITE BLOOD COUNT 6.3 10^3/uL (4.0-10.0)
[2018-09-11 11:07] LABS: ALBUMIN 3.9 GM/DL (3.2-5.2); ALT/SGPT 21 U/L (12-78); BILIRUBIN,DIRECT 0.2 MG/DL (0.0-0.2); BILIRUBIN,TOTAL 0.7 MG/DL (0.2-1.0); BLOOD UREA NITROGEN 13 MG/DL (7-18); CARBON DIOXIDE LEVEL 27 MEQ/L (21-32); CHLORIDE LEVEL 106 MEQ/L (98-107); GLOMERULAR FILTRATION RATE > 60.0 (>60); GLUCOSE, FASTING 97 MG/DL (70-100); LIPASE 90 U/L (73-393); POTASSIUM SERUM 3.9 MEQ/L (3.5-5.1); SODIUM LEVEL 137 MEQ/L (136-145); TOTAL PROTEIN 7.5 GM/DL (6.4-8.2)
[2018-09-11] MEDS ORDERED: REGL10TA6 PO (11:15)
[2018-09-11] MEDS ORDERED: ZOFR4TAB16 PO (11:15)
[2018-09-11] MEDS ORDERED: DICY1CAP8 PO (11:15)
[2018-09-11 11:24] VITALS: BP 122/73
== END 2018-09-11 11:25 | disposition home or self-care (01) ==
LOC: M ED 08:13
DX: R10.9 Unspecified abdominal pain (principal); R11.0 Nausea; K21.9 Gastro-esophageal reflux disease without esophagitis; Z79.899 Other long term (current) drug therapy; Z88.5 Allergy status to narcotic agent
CPT/HCPCS: 80048; 80076; 81001; 83690; 84702; 85025; 96361; 96374; 99284; J2765

== ENCOUNTER 2018-09-16 09:14 | Emergency (ER) | payer BC, MEDICAID ==
[~2018-09-16] VITALS: Ht 157.5 cm; Wt 99.3 kg
[~2018-09-16 09:14] MED LIST changes: +DICY1CAP8 PO; +ZOFR4TAB16 PO
[2018-09-16] MEDS ORDERED: OMEP40CA2 PO (09:25)
[2018-09-16 10:51] LABS: BASO % 0.6 % (0.0-1.0); EOS % 0.1 % (0.0-3.0); HEMATOCRIT 39.8 % (36.0-47.0); HEMOGLOBIN 13.4 g/dl (12.0-15.5); LYMPH # 2.1 10^3/uL (1.5-6.5); LYMPH % 29.3 % (24.0-44.0); MEAN CORPUSCULAR HEMOGLOBIN 29.7 pg (27.0-33.0); MEAN CORPUSCULAR HGB CONC 33.7 g/dl (32.0-36.5); MEAN CORPUSCULAR VOLUME 88.2 fl (80.0-96.0); MONO # 0.4 10^3/uL (0.0-0.8); MONO % 5.9 % (0.0-5.0); NEUTROPHILS # 4.6 10^3/uL (1.8-7.7); NEUTROPHILS % 63.8 % (36.0-66.0); PLATELET COUNT, AUTOMATED 245 10^3/uL (150-450); RED BLOOD COUNT 4.51 10^6/uL (4.00-5.40); WHITE BLOOD COUNT 7.2 10^3/uL (4.0-10.0)
[2018-09-16 11:15] LABS: HCG, SERUM QUALITATIVE NEGATIVE (NEGATIVE)
[2018-09-16 12:19] VITALS: BP 133/75
--- NOTE | 2018-09-16 12:19 | REP ---
PELVIC ULTRASOUND: Real-time sonographic evaluation of the pelvis performed utilizing transabdominal and endovaginal technique. The bladder measures 3.9 x 3.8 x 2.3 cm. The uterus measures 7.7 x 4.4 x 5.2 cm. Endometrial thickness is 7 mm. There is no endometrial fluid collection. There is a scar with tiny cystic changes in the lower uterine segment and a tiny amount of adjacent free fluid. Nabothian cysts are seen in the cervix. The ovaries are normal in size and echotexture, right ovary measuring 3.2 x 2.6 x 2.5 cm and left ovary 2.8 x 2.2 x 2.2 cm. There is no adnexal mass. There is no torsion of either ovary, RI right ovary is 0.55 and left ovary 0.54 with duplex Doppler evaluation. There is mild to moderate free fluid in the cul-de-sac. There is ill-defined shadowing in the region of the uterine fundus without a discrete mass identified. The findings suggest fibroid or adenomyosis changes in the fundus. IMPRESSION: Findings suggesting fibroid or adenomyosis changes in the fundus of the uterus. No adnexal mass or torsion. Mild to moderate free fluid. Electronically Signed by Johnny Alba MD 09/16/2018 11:51 P
[2018-09-16 13:00] LABS: CHLAMYDIA DNA AMPLIFICATION NEGATIVE (NEGATIVE); GC DNA AMPLIFICATION NEGATIVE (NEGATIVE)
--- NOTE | 2018-09-17 06:48 | ED PDOC ---
Post-Departure Follow-Up yakov belcher faxed formal report of pelvic us for fu Yusuf Stark MD Sep 17, 2018 06:48
== END 2018-09-16 12:43 | disposition home or self-care (01) ==
LOC: M ED 09:14
DX: D25.9 Leiomyoma of uterus, unspecified (principal); R10.2 Pelvic and perineal pain; K21.9 Gastro-esophageal reflux disease without esophagitis; Z88.5 Allergy status to narcotic agent; Z79.899 Other long term (current) drug therapy

== ENCOUNTER 2018-10-17 09:40 | Emergency (ER) | payer BC, MEDICAID ==
[~2018-10-17] VITALS: Ht 157.5 cm; Wt 100.5 kg
[~2018-10-17 09:40] MED LIST changes: +OMEP40CA2 PO
[2018-10-17] MEDS ORDERED: KETOROLAC 30 MG/ML VIAL (J1885) IV ONE (10:15)
[2018-10-17] MEDS ORDERED: ONDANSETRON 4MG/2ML VIAL (J2405) IV ONE (10:15)
[2018-10-17 10:34] LABS: BASO # 0.1 10^3/uL (0.0-0.2); BASO % 0.9 % (0.0-1.0); EOS % 0.1 % (0.0-3.0); HEMATOCRIT 39.6 % (36.0-47.0); HEMOGLOBIN 13.4 g/dl (12.0-15.5); LYMPH # 2.3 10^3/uL (1.5-6.5); LYMPH % 33.4 % (24.0-44.0); MEAN CORPUSCULAR HEMOGLOBIN 30.2 pg (27.0-33.0); MEAN CORPUSCULAR HGB CONC 33.8 g/dl (32.0-36.5); MEAN CORPUSCULAR VOLUME 89.4 fl (80.0-96.0); MONO # 0.4 10^3/uL (0.0-0.8); MONO % 6.4 % (0.0-5.0); NEUTROPHILS % 58.9 % (36.0-66.0); PLATELET COUNT, AUTOMATED 260 10^3/uL (150-450); RED BLOOD COUNT 4.43 10^6/uL (4.00-5.40); WHITE BLOOD COUNT 6.9 10^3/uL (4.0-10.0)
[2018-10-17 12:50] VITALS: BP 133/74
--- NOTE | 2018-10-17 13:06 | REP ---
PELVIC ULTRASOUND: Real-time sonographic evaluation of the pelvis performed utilizing transabdominal and endovaginal technique. Bladder measures 4.9 x 4.2 x 6.6 cm. Uterus measures 7.2 x 4.0 x 4.4 cm. Endometrial thickness is 6 mm. Right ovary measures 4.4 x 2.1 x 2.5 cm and contains a complex cystic structure probably representing a hemorrhagic dominant follicle 1.9 x 1.4 x 1.8 cm. Left ovary measures 2.2 x 2.1 x 2.0 cm. There is no torsion of either ovary, RI right ovary 0.53 and left ovary 0.55. Echotexture of the myometrium is heterogeneous with what appear to be a few fibroids, one anteriorly on the left 5 mm in diameter, another anteriorly on the right 1 cm in diameter. There is a small amount of free fluid. IMPRESSION: Two small fibroids in the anterior uterus. Complex dominant follicle right ovary 1.9 cm in diameter. No torsion. Mild free fluid. Electronically Signed by Johnny Alba MD 10/17/2018 02:41 P
== END 2018-10-17 12:51 | disposition home or self-care (01) ==
LOC: M ED 09:40
DX: D25.9 Leiomyoma of uterus, unspecified (principal); N83.299 Other ovarian cyst, unspecified side; K21.9 Gastro-esophageal reflux disease without esophagitis; K58.9 Irritable bowel syndrome, unspecified; Z79.899 Other long term (current) drug therapy; Z88.5 Allergy status to narcotic agent
CPT/HCPCS: 76830; 76856; 80047; 81001; 83690; 84702; 85025; 93976; 96374; 96375; 99284; J1885; J2405

== ENCOUNTER → 2018-12-05 | Outpatient (REF) | payer BC, MEDICAID | LOC: M LAB REF 17:49 | PROVIDERS: ATTEND Obstetrics & Gynecology | DX: N93.9 Abnormal uterine and vaginal bleeding, unspecified (principal) ==

== ENCOUNTER 2019-01-31 08:13 | Emergency (ER) | payer BC, MEDICAID ==
[~2019-01-31] VITALS: Ht 157.5 cm; Wt 100.4 kg
[~2019-01-31 08:13] MED LIST changes: -OMEP40CA2 PO; +OMEP40CA97 PO
[2019-01-31] MEDS ORDERED: NS 1,000 ML IV ONE (10:45)
[2019-01-31 10:57] LABS: BASO % 0.4 % (0.0-1.0); EOS % 0.1 % (0.0-3.0); HEMATOCRIT 39.3 % (36.0-47.0); HEMOGLOBIN 12.8 g/dl (12.0-15.5); LYMPH % 18.5 % (24.0-44.0); MEAN CORPUSCULAR HEMOGLOBIN 29.2 pg (27.0-33.0); MEAN CORPUSCULAR HGB CONC 32.6 g/dl (32.0-36.5); MEAN CORPUSCULAR VOLUME 89.7 fl (80.0-96.0); MONO # 0.5 10^3/uL (0.0-0.8); NEUTROPHILS # 8.1 10^3/uL (1.5-8.5); PLATELET COUNT, AUTOMATED 245 10^3/uL (150-450); RED BLOOD COUNT 4.38 10^6/uL (4.00-5.40); WHITE BLOOD COUNT 10.8 10^3/uL (4.0-10.0)
[2019-01-31 11:26] LABS: ALBUMIN 3.7 GM/DL (3.2-5.2); ALT/SGPT 17 U/L (12-78); BILIRUBIN,TOTAL 1.2 MG/DL (0.2-1.0); BLOOD UREA NITROGEN 9 MG/DL (7-18); CALCIUM LEVEL 8.7 MG/DL (8.5-10.1); CARBON DIOXIDE LEVEL 25 MEQ/L (21-32); CHLORIDE LEVEL 106 MEQ/L (98-107); CREATININE FOR GFR 0.64 MG/DL (0.55-1.30); GLOMERULAR FILTRATION RATE > 60.0 (>60); GLUCOSE, FASTING 91 MG/DL (70-100); POTASSIUM SERUM 4.1 MEQ/L (3.5-5.1); SODIUM LEVEL 139 MEQ/L (136-145); TOTAL PROTEIN 7.2 GM/DL (6.4-8.2)
[2019-01-31] MEDS ORDERED: ISOVUE-370 76% 100ML VIAL (Q9967) As Ordered ONE (11:53)
--- NOTE | 2019-01-31 12:21 | REP ---
Clinical: Abdominal pain. Technique: Axial contrast enhanced images from the lung bases to the pubic symphysis using 100 ml Isovue 370 intravenous contrast material with coronal and sagittal re-formations. Comparison: 02/08/2018 Findings: Lung bases are clear. Visualized heart and pericardium normal. Liver, spleen, pancreas, gallbladder, bilateral adrenal glands and kidneys are normal. Incidental 2 mm nonobstructing right renal calculus noted. The enteric system is without obstruction or acute inflammatory process. Normal terminal ileum and appendix identified in the right lower quadrant. Pelvis demonstrates normal bladder and age-appropriate uterus with cystic changes to the ovaries (left greater than right) likely physiologic. No ascites. No free air. No adenopathy. Abdominal aorta without aneurysm or dissection. Musculoskeletal structures are intact. Impression: 1. Mildly prominent cystic change to the left adnexa measuring 3.3 cm likely physiologic and possibly related to patient's symptoms. 2. Incidental 2 mm nonobstructing right renal calculus. 3. Otherwise normal CT of the abdomen and pelvis. Electronically Signed by Esteban Dubon MD 01/31/2019 12:12 P
[2019-01-31 12:50] VITALS: BP 118/77
== END 2019-01-31 13:14 | disposition home or self-care (01) ==
LOC: M ED 08:13
DX: N83.292 Other ovarian cyst, left side (principal); K21.9 Gastro-esophageal reflux disease without esophagitis; K58.9 Irritable bowel syndrome, unspecified; Z79.899 Other long term (current) drug therapy; Z88.5 Allergy status to narcotic agent
CPT/HCPCS: 74177; 80053; 81001; 84702; 85025; 96360; 99283; Q9967

== ENCOUNTER 2019-03-15 09:06 | Emergency (ER) | payer BC, MEDICAID ==
[~2019-03-15] VITALS: Ht 157.5 cm; Wt 103.5 kg
[2019-03-15 10:10] LABS: BASO # 0.1 10^3/uL (0.0-0.2); BASO % 0.7 % (0.0-1.0); EOS % 0.4 % (0.0-3.0); HEMOGLOBIN 12.8 g/dl (12.0-15.5); LYMPH % 28.6 % (24.0-44.0); MEAN CORPUSCULAR HEMOGLOBIN 29.2 pg (27.0-33.0); MEAN CORPUSCULAR VOLUME 91.1 fl (80.0-96.0); MONO # 0.4 10^3/uL (0.0-0.8); MONO % 6.2 % (0.0-5.0); NEUTROPHILS # 4.3 10^3/uL (1.5-8.5); NEUTROPHILS % 63.7 % (36.0-66.0); PLATELET COUNT, AUTOMATED 227 10^3/uL (150-450); RED BLOOD COUNT 4.39 10^6/uL (4.00-5.40); WHITE BLOOD COUNT 6.8 10^3/uL (4.0-10.0)
[2019-03-15 10:35] LABS: ALBUMIN 3.7 GM/DL (3.2-5.2); ALT/SGPT 14 U/L (12-78); BILIRUBIN,DIRECT 0.2 MG/DL (0.0-0.2); BILIRUBIN,TOTAL 0.9 MG/DL (0.2-1.0); BLOOD UREA NITROGEN 11 MG/DL (7-18); CALCIUM LEVEL 8.6 MG/DL (8.5-10.1); CARBON DIOXIDE LEVEL 24 MEQ/L (21-32); CHLORIDE LEVEL 106 MEQ/L (98-107); CREATININE FOR GFR 0.69 MG/DL (0.55-1.30); GLOMERULAR FILTRATION RATE > 60.0 (>60); GLUCOSE, FASTING 103 MG/DL (70-100); LIPASE 93 U/L (73-393); SODIUM LEVEL 139 MEQ/L (136-145); TOTAL PROTEIN 6.8 GM/DL (6.4-8.2)
[2019-03-15 10:45] LABS: INFLUENZA A AMPLIFICATION NEGATIVE (NEGATIVE); INFLUENZA B AMPLIFICATION NEGATIVE (NEGATIVE)
--- NOTE | 2019-03-15 12:46 | REP ---
PELVIC ULTRASOUND: Real-time sonographic evaluation of the pelvis is performed utilizing transabdominal and endovaginal technique. Uterus measures 7.9 x 4.5 x 5.5 cm. Endometrial thickness is 10 mm. There is no intrauterine gestation identified. Right ovary measures 2.2 x 1.5 x 2.5 cm. Left ovary measures 5.4 x 2.7 x 3.7 cm. There is a lobulated irregular cystic structure in the left ovary 5.0 x 2.6 x 3.3 cm. No torsion is seen of either ovary, RI 0.47 in right ovary and 0.36 in the left ovary. There is no evidence of adnexal mass or free fluid. Small fluid echogenicity is seen at the site of scar in the lower uterine segment. Differential diagnosis would include very early intrauterine , missed or ectopic . Suggest correlate with serial quantitative beta hCG values, and followup ultrasound is necessary. Electronically Signed by Johnny Alba MD 03/20/2019 09:43 A
[2019-03-15 13:16] VITALS: BP 124/66
== END 2019-03-15 13:33 | disposition home or self-care (01) ==
LOC: M ED 09:06
DX: Z32.01 Encounter for pregnancy test, result positive (principal); O99.611 Diseases of the digestive system complicating pregnancy, first trimester; K21.9 Gastro-esophageal reflux disease without esophagitis; K58.9 Irritable bowel syndrome, unspecified; O36.80X0 Pregnancy with inconclusive fetal viability, not applicable or unspecified; Z3A.01 Less than 8 weeks gestation of pregnancy; Z79.899 Other long term (current) drug therapy; Z87.59 Personal history of other complications of pregnancy, childbirth and the puerperium; Z88.6 Allergy status to analgesic agent

== ENCOUNTER → 2019-03-18 | Outpatient (CLI) | payer BC, MEDICAID | LOC: M LAB 08:55 | PROVIDERS: ATTEND Advanced Practice Midwife | DX: Z00.00 Encounter for general adult medical examination without abnormal findings (principal) ==

== ENCOUNTER → 2019-03-20 | Outpatient (CLI) | payer BC, MEDICAID ==
[~2019-03-20] MED LIST changes: +PREN29TA4 PO
== END ==
LOC: M LAB 08:01
PROVIDERS: ATTEND Advanced Practice Midwife
DX: O03.9 Complete or unspecified spontaneous abortion without complication (principal)

== ENCOUNTER → 2019-03-20 | Outpatient (CLI) | payer BC, MEDICAID ==
--- NOTE | 2019-03-20 12:37 | REP ---
Obstetric ultrasound, stat request for viability: The studies performed transabdominal, endovaginal and Doppler ultrasound assessment. The the uterus is anteverted and normal size measuring 8.0 x 4.1 x 5.3 cm. A scar is identified in the anterior myometrium. There is an intrauterine gestational sac, however, there is no identifiable pole or yolk sac. The gestational sac size is 3.6 x 3.1 x 4.4 millimeters. The mean gestational sac diameter of 3.7 mm. The gestational age is 5 weeks 1 day. Right ovary: The right ovary measures 3.0 x 2.0-0.2 cm. There is no dominant mass or cyst. With color Doppler assessment there is vascular flow in the right ovary, however, the resistive index could not be performed. Left ovary: The left ovary measures 4.3 by 3 x 1 x 2.9 cm. There is an irregular left ovarian cyst measuring 2.8 x 1.6 x 1.9 cm. There is no free fluid in the pelvis. Impression: Tiny intrauterine gestational sac without pole or yolk sac. The finding is nonspecific and could represent early gestation not yet visible by ultrasound, spontaneous or ectopic gestation. Follow-up is recommended. Electronically Signed by Johnny Dowling MD 03/20/2019 12:29 P
== END ==
LOC: M RAD 10:18
PROVIDERS: ATTEND Advanced Practice Midwife
DX: O03.9 Complete or unspecified spontaneous abortion without complication (principal)

== ENCOUNTER 2019-03-22 07:11 | Emergency (ER) | payer BC, MEDICAID ==
[~2019-03-22] VITALS: Ht 157.5 cm; Wt 103.6 kg
[~2019-03-22 07:11] MED LIST changes: -PREN29TA4 PO
[2019-03-22] MEDS ORDERED: PREN29TA4 PO (07:20)
[2019-03-22 09:22] LABS: BASO % 0.4 % (0.0-1.0); EOS % 0.2 % (0.0-3.0); HEMATOCRIT 42.5 % (36.0-47.0); HEMOGLOBIN 13.7 g/dl (12.0-15.5); LYMPH # 2.2 10^3/uL (1.5-5.0); LYMPH % 24.7 % (24.0-44.0); MEAN CORPUSCULAR HEMOGLOBIN 29.5 pg (27.0-33.0); MEAN CORPUSCULAR HGB CONC 32.2 g/dl (32.0-36.5); MEAN CORPUSCULAR VOLUME 91.4 fl (80.0-96.0); MONO # 0.5 10^3/uL (0.0-0.8); MONO % 5.8 % (0.0-5.0); NEUTROPHILS # 6.2 10^3/uL (1.5-8.5); NEUTROPHILS % 68.6 % (36.0-66.0); PLATELET COUNT, AUTOMATED 248 10^3/uL (150-450); RED BLOOD COUNT 4.65 10^6/uL (4.00-5.40); WHITE BLOOD COUNT 9.1 10^3/uL (4.0-10.0)
[2019-03-22 09:44] LABS: BLOOD UREA NITROGEN 14 MG/DL (7-18); CALCIUM LEVEL 8.6 MG/DL (8.5-10.1); CARBON DIOXIDE LEVEL 26 MEQ/L (21-32); CHLORIDE LEVEL 107 MEQ/L (98-107); CREATININE FOR GFR 0.71 MG/DL (0.55-1.30); GLOMERULAR FILTRATION RATE > 60.0 (>60); GLUCOSE, FASTING 105 MG/DL (70-100); HCG, SERUM QUANTITATIVE 296 MIU/ML; SODIUM LEVEL 138 MEQ/L (136-145)
--- NOTE | 2019-03-22 10:31 | REP ---
First trimester obstetric ultrasound for vaginal bleeding, emergency room request: Comparison is 2019. The study is performed with transabdominal, endovaginal and Doppler ultrasound assessment. The uterus is anteverted and normal size measuring 8.9 x 4.4 x 4.9 cm. A scar is again identified. The endometrium is not thickened measuring 4.3 mm. The intrauterine gestational sac identified on the previous study is no longer identified, compatible with spontaneous . Right ovary: There are ovary is normal size measuring 2.3 x 2.1 x 1.8 cm. There is no dominant right ovarian mass or cyst. There is no right ovarian Doppler assessment . Left ovary: The left ovary measures 2.7 x 2.1 x 3.3 cm and is normal size. 9. Irregular follicle measuring 2.0 x 1.8, and 4 cm is again identified. Doppler assessment there is vascular flow in the left ovary, the Doppler resistive index in the parenchymal arteries measures 0.42. No free fluid in the pelvis is identified. Impression: The previous intrauterine gestational sac is no longer identified, consistent with spontaneous . However, ectopic is not entirely discounted and continued follow-up is recommended. Electronically Signed by Johnny Dowling MD 03/22/2019 10:22 A
[2019-03-22 10:43] VITALS: BP 120/56
== END 2019-03-22 10:54 | disposition home or self-care (01) ==
LOC: M ED 07:11
DX: O03.9 Complete or unspecified spontaneous abortion without complication (principal); Z88.5 Allergy status to narcotic agent

== ENCOUNTER → 2019-03-25 | Outpatient (CLI) | payer BC, MEDICAID ==
[~2019-03-25] MED LIST changes: +PREN29TA4 PO
== END ==
LOC: M PLALAB 11:31
PROVIDERS: ATTEND Obstetrics & Gynecology
DX: O03.4 Incomplete spontaneous abortion without complication (principal)

== ENCOUNTER → 2019-05-03 | Outpatient (REF) | payer BC, MEDICAID | LOC: M PLALAB 12:23 | PROVIDERS: ATTEND Advanced Practice Midwife | DX: O03.4 Incomplete spontaneous abortion without complication (principal) ==

== ENCOUNTER → 2019-08-21 | Outpatient (REF) | payer BC, MEDICAID | LOC: M PLALAB 13:47 | PROVIDERS: ATTEND Advanced Practice Midwife | DX: N91.1 Secondary amenorrhea (principal) ==

== ENCOUNTER → 2019-10-01 | Outpatient (REF) | payer BC, MEDICAID ==
[2019-10-28 13:47] LABS: APPEARANCE, URINE CLEAR (CLEAR); BACTERIA, URINE AUTO NEGATIVE (NEGATIVE); BILIRUBIN, URINE AUTO NEGATIVE (NEGATIVE); BLOOD, URINE BLOOD NEGATIVE (NEGATIVE); COLOR, URINE STRAW (YELLOW); GLUCOSE, URINE (UA) AUTO NEGATIVE (NEGATIVE); KETONE, URINE AUTO NEGATIVE (NEGATIVE); LEUKOCYTE ESTERASE, URINE AUTO NEGATIVE (NEGATIVE); NITRITE, URINE AUTO NEGATIVE (NEGATIVE); PROTEIN, URINE AUTO NEGATIVE (NEGATIVE); RBC, URINE AUTO 1 /HPF (0-3); SQUAMOUS EPITHELIAL CELL UR AU 1 /HPF (0-6); UROBILINOGEN, URINE AUTO 0.2 mg/dL (0.0-2.0); WBC, URINE AUTO 0 /HPF (0-3)
[2019-10-28 13:48] LABS: URINE PREG TEST NEGATIVE (NEGATIVE)
== END ==
LOC: M LAB REF 11:47
PROVIDERS: ATTEND Physician Assistant Medical
DX: R10.9 Unspecified abdominal pain (principal)

== ENCOUNTER 2019-10-08 14:47 | Emergency (ER) | payer BC, MEDICAID ==
[2019-11-10 13:03] LABS: BASO % 0.4 % (0.0-1.0); EOS % 0.4 % (0.0-3.0); HEMATOCRIT 41.2 % (36.0-47.0); HEMOGLOBIN 13.9 g/dl (12.0-15.5); LYMPH # 2.4 10^3/uL (1.5-5.0); LYMPH % 28.8 % (24.0-44.0); MEAN CORPUSCULAR HEMOGLOBIN 29.9 pg (27.0-33.0); MEAN CORPUSCULAR HGB CONC 33.7 g/dl (32.0-36.5); MEAN CORPUSCULAR VOLUME 88.6 fl (80.0-96.0); MONO # 0.6 10^3/uL (0.0-0.8); MONO % 7.6 % (0.0-5.0); NEUTROPHILS # 5.2 10^3/uL (1.5-8.5); NEUTROPHILS % 62.4 % (36.0-66.0); PLATELET COUNT, AUTOMATED 247 10^3/uL (150-450); RED BLOOD COUNT 4.65 10^6/uL (4.00-5.40); WHITE BLOOD COUNT 8.3 10^3/uL (4.0-10.0)
[2019-11-10 13:59] LABS: APPEARANCE, URINE HAZY (CLEAR); BACTERIA, URINE AUTO NEGATIVE (NEGATIVE); BILIRUBIN, URINE AUTO NEGATIVE (NEGATIVE); BLOOD, URINE BLOOD 1+ (NEGATIVE); COLOR, URINE YELLOW (YELLOW); GLUCOSE, URINE (UA) AUTO NEGATIVE (NEGATIVE); KETONE, URINE AUTO NEGATIVE (NEGATIVE); LEUKOCYTE ESTERASE, URINE AUTO NEGATIVE (NEGATIVE); MUCUS, URINE SMALL (NEGATIVE); NITRITE, URINE AUTO NEGATIVE (NEGATIVE); PROTEIN, URINE AUTO NEGATIVE (NEGATIVE); RBC, URINE AUTO 4 /HPF (0-3); SPECIFIC GRAVITY URINE AUTO 1.028 (1.002-1.035); SQUAMOUS EPITHELIAL CELL UR AU 12 /HPF (0-6); UROBILINOGEN, URINE AUTO 0.2 mg/dL (0.0-2.0); WBC, URINE AUTO 0 /HPF (0-3)
[2019-12-18 14:06] LABS: BLOOD UREA NITROGEN 11 MG/DL (7-18); CALCIUM LEVEL 8.8 MG/DL (8.5-10.1); CARBON DIOXIDE LEVEL 27 MEQ/L (21-32); CHLORIDE LEVEL 107 MEQ/L (98-107); CREATININE FOR GFR 0.87 MG/DL (0.55-1.30); GLOMERULAR FILTRATION RATE > 60.0 (>60); GLUCOSE, FASTING 97 MG/DL (70-100); POTASSIUM SERUM 3.9 MEQ/L (3.5-5.1); SODIUM LEVEL 139 MEQ/L (136-145)
[2019-12-18 14:07] LABS: HCG, SERUM QUALITATIVE NEGATIVE (NEGATIVE)
[2019-12-27 09:39] LABS: ALBUMIN 3.9 GM/DL (3.2-5.2); ALT/SGPT 18 U/L (12-78); BILIRUBIN,DIRECT 0.2 MG/DL (0.0-0.2); BILIRUBIN,TOTAL 0.7 MG/DL (0.2-1.0); TOTAL PROTEIN 7.2 GM/DL (6.4-8.2)
== END 2019-10-08 19:52 | disposition left against medical advice (07) ==
LOC: M ED 14:47
DX: R10.30 Lower abdominal pain, unspecified (principal); J30.2 Other seasonal allergic rhinitis; Z88.5 Allergy status to narcotic agent; Z79.899 Other long term (current) drug therapy

== ENCOUNTER → 2020-07-21 | Outpatient (CLI) | payer BC, MEDICAID ==
[~2020-07-21] MED LIST changes: +ISOVUE-370 76% 100ML VIAL As Ordered ONE
--- NOTE | 2020-07-21 17:07 | REP ---
INDICATION: INFERTILITY. COMPARISON: None. TECHNIQUE: The endometrium was cannulated and contrast was injected by the attending patient services technician Dr. Barksdale. Fluoroscopic spot films were acquired by Opal Paredes [facility], under the direct supervision of Dr. Yanez. Images reviewed prior with Dr. Yanez to dictation. FINDINGS: Fluoroscopy spot radiographs document filling of a normal endometrial cavity. There is normal isthmic and ampullary fallopian tube opacification, and bilateral tubal patency was documented. IMPRESSION: Normal hysterosalpingogram with bilateral tubal patency documented. 0.4 minutes of fluoroscopy time was utilized for this procedure. Some fluoroscopic images are performed with last image hold technology. These images require no additional radiation. <Electronically signed by Opal Paredes > 07/21/20 [id number] <Electronically signed by Triston Yanez > 07/21/20 [id number]
== END ==
LOC: M RADPRO 12:03
PROVIDERS: ATTEND Obstetrics & Gynecology
DX: N97.9 Female infertility, unspecified (principal)
CPT/HCPCS: 58340; 74740; Q9967

== ENCOUNTER 2020-08-02 07:52 | Emergency (ER) | payer BC, MEDICAID ==
[~2020-08-02] VITALS: Ht 157.5 cm; Wt 110.6 kg
[~2020-08-02 07:52] MED LIST changes: -ISOVUE-370 76% 100ML VIAL As Ordered ONE
[2020-08-02] MEDS ORDERED: ONDANSETRON 4 MG ORAL DISINTEGRATING TAB PO ONE (08:50)
[2020-08-02] MEDS ORDERED: ONDA4TAB6 PO (09:38)
[2020-08-02 09:43] VITALS: BP 125/65
== END 2020-08-02 09:45 | disposition home or self-care (01) ==
LOC: M ED 07:52
DX: R51.9 Headache, unspecified (principal); R11.0 Nausea; Z20.828 Contact with and (suspected) exposure to other viral communicable diseases; Z87.42 Personal history of other diseases of the female genital tract; Z87.440 Personal history of urinary (tract) infections; Z88.5 Allergy status to narcotic agent; Z79.899 Other long term (current) drug therapy
CPT/HCPCS: 99283; Q0162

== ENCOUNTER 2021-04-17 10:08 | Emergency (ER) | payer BC, MEDICAID, OTHER ==
[~2021-04-17] VITALS: Ht 157.5 cm; Wt 100.0 kg
[~2021-04-17 10:08] MED LIST changes: +OMEP40CA4 PO; -OMEP40CA97 PO; +ONDA4TAB6 PO
[2021-04-17 11:33] LABS: BASO # 0.1 10^3/uL (0.0-0.2); BASO % 0.8 % (0.0-1.0); EOS % 0.4 % (0.0-3.0); HEMATOCRIT 42.5 % (36.0-47.0); HEMOGLOBIN 14.2 g/dl (12.0-15.5); LYMPH # 2.2 10^3/uL (1.5-5.0); LYMPH % 27.5 % (24.0-44.0); MEAN CORPUSCULAR HEMOGLOBIN 29.8 pg (27.0-33.0); MEAN CORPUSCULAR HGB CONC 33.4 g/dl (32.0-36.5); MEAN CORPUSCULAR VOLUME 89.3 fl (80.0-96.0); MONO # 0.6 10^3/uL (0.0-0.8); PLATELET COUNT, AUTOMATED 312 10^3/uL (150-450); RED BLOOD COUNT 4.76 10^6/uL (4.00-5.40); WHITE BLOOD COUNT 7.9 10^3/uL (4.0-10.0)
[2021-04-17 11:54] VITALS: BP 130/78
== END 2021-04-17 12:05 | disposition home or self-care (01) ==
LOC: M ED 10:08
DX: S20.02XA Contusion of left breast, initial encounter (principal); X58.XXXA Exposure to other specified factors, initial encounter; Y92.9 Unspecified place or not applicable; Y93.9 Activity, unspecified; Y99.9 Unspecified external cause status; K21.9 Gastro-esophageal reflux disease without esophagitis; Z88.6 Allergy status to analgesic agent

== ENCOUNTER 2021-12-29 12:49 | Emergency (ER) | payer OTHER ==
[~2021-12-29] VITALS: Ht 157.5 cm; Wt 105.3 kg
[2021-12-29 12:49] VITALS: BP 148/77
[2021-12-29] MEDS ORDERED: FLUORESCEIN OPHTH 1 MG STRIP OD ONE (13:05)
[2021-12-29] MEDS ORDERED: TETRACAINE 0.5% OPHTH SOLN 4ML OU ONE (13:05)
== END 2021-12-29 15:22 | disposition home or self-care (01) ==
LOC: M ED 12:49
DX: H57.12 Ocular pain, left eye (principal)

== ENCOUNTER 2022-02-16 11:45 | Emergency (ER) | payer OTHER ==
[~2022-02-16] VITALS: Ht 157.5 cm; Wt 106.2 kg
[2022-02-16] MEDS ORDERED: NS 1,000 ML IV ONE (16:30)
[2022-02-16] MEDS ORDERED: KETOROLAC 30 MG/ML 1ML VIAL IV ONE (16:30)
[2022-02-16 17:26] LABS: BILIRUBIN,DIRECT 0.2 MG/DL (<0.4)
[2022-02-16 17:33] LABS: ALBUMIN 3.7 G/DL (3.2-5.2); ALKALINE PHOSPHATASE 87 U/L (46-116); ALT/SGPT 22 U/L (7.0-40); AST/SGOT 37 U/L (<34); BILIRUBIN,TOTAL 0.9 MG/DL (0.3-1.2); BLOOD UREA NITROGEN 8 MG/DL (9-23); CARBON DIOXIDE LEVEL 21 MMOL/L (20-31); CHLORIDE LEVEL 103 MMOL/L (98-107); CREATININE FOR GFR 0.61 MG/DL (0.55-1.30); GLOMERULAR FILTRATION RATE > 60.0 (>60); GLUCOSE, FASTING 89 MG/DL (60-100); LIPASE 25 U/L (12-53); POTASSIUM SERUM 4.6 MMOL/L (3.5-5.1); SODIUM LEVEL 135 MMOL/L (136-145); TOTAL PROTEIN 6.8 G/DL (5.7-8.2)
[2022-02-16 17:36] LABS: HCG, SERUM QUALITATIVE POSITIVE (NEGATIVE)
[2022-02-16 18:18] LABS: BASO # 0.1 10^3/uL (0.0-0.2); BASO % 0.6 % (0.0-1.0); EOS % 0.1 % (0.0-3.0); HEMATOCRIT 37.9 % (36.0-47.0); HEMOGLOBIN 12.6 g/dl (12.0-15.5); LYMPH # 3.4 10^3/uL (1.5-5.0); LYMPH % 23.5 % (24.0-44.0); MEAN CORPUSCULAR HEMOGLOBIN 29.9 pg (27.0-33.0); MEAN CORPUSCULAR HGB CONC 33.2 g/dl (32.0-36.5); MEAN CORPUSCULAR VOLUME 89.8 fl (80.0-96.0); MONO # 0.7 10^3/uL (0.0-0.8); MONO % 4.6 % (2.0-8.0); NEUTROPHILS # 10.2 10^3/uL (1.5-8.5); NEUTROPHILS % 70.8 % (36.0-66.0); PLATELET COUNT, AUTOMATED 260 10^3/uL (150-450); RED BLOOD COUNT 4.22 10^6/uL (4.00-5.40); WHITE BLOOD COUNT 14.5 10^3/uL (4.0-10.0)
[2022-02-16 18:35] LABS: HCG, SERUM QUANTITATIVE 81330.7 MIU/ML (<4.2)
[2022-02-16 19:46] VITALS: BP 144/85
== END 2022-02-16 19:47 | disposition home or self-care (01) ==
LOC: M ED 11:45
DX: O26.891 Other specified pregnancy related conditions, first trimester (principal); R10.9 Unspecified abdominal pain; Z3A.01 Less than 8 weeks gestation of pregnancy; Z88.5 Allergy status to narcotic agent

== ENCOUNTER 2022-02-20 14:14 | Emergency (ER) | payer OTHER ==
[~2022-02-20] VITALS: Ht 157.5 cm; Wt 104.5 kg
[2022-02-20] MEDS ORDERED: MULTTAB20 PO (14:18)
[2022-02-20 15:22] LABS: BASO % 0.2 % (0.0-1.0); HEMATOCRIT 41.9 % (36.0-47.0); HEMOGLOBIN 14.3 g/dl (12.0-15.5); LYMPH # 1.2 10^3/uL (1.5-5.0); LYMPH % 9.8 % (24.0-44.0); MEAN CORPUSCULAR HGB CONC 34.1 g/dl (32.0-36.5); MONO # 0.7 10^3/uL (0.0-0.8); MONO % 5.7 % (2.0-8.0); NEUTROPHILS # 10.1 10^3/uL (1.5-8.5); NEUTROPHILS % 83.8 % (36.0-66.0); PLATELET COUNT, AUTOMATED 257 10^3/uL (150-450); RED BLOOD COUNT 4.76 10^6/uL (4.00-5.40)
[2022-02-20 16:12] LABS: BILIRUBIN,DIRECT 0.3 MG/DL (<0.4)
[2022-02-20 16:13] LABS: ALBUMIN 3.8 G/DL (3.2-5.2); ALKALINE PHOSPHATASE 100 U/L (46-116); ALT/SGPT 28 U/L (7.0-40); AST/SGOT 27 U/L (<34); BILIRUBIN,TOTAL 1.3 MG/DL (0.3-1.2); BLOOD UREA NITROGEN 12 MG/DL (9-23); CARBON DIOXIDE LEVEL 19 MMOL/L (20-31); CHLORIDE LEVEL 103 MMOL/L (98-107); CREATININE FOR GFR 0.57 MG/DL (0.55-1.30); GLOMERULAR FILTRATION RATE > 60.0 (>60); GLUCOSE, FASTING 95 MG/DL (60-100); POTASSIUM SERUM 3.9 MMOL/L (3.5-5.1); SODIUM LEVEL 136 MMOL/L (136-145); TOTAL PROTEIN 7.1 G/DL (5.7-8.2)
[2022-02-20 16:25] LABS: HCG, SERUM QUANTITATIVE 88192.8 MIU/ML (<4.2)
[2022-02-20] MEDS ORDERED: ONDANSETRON 4MG ORAL DISINTEGRATING TAB PO ONE ×3 (18:00→18:35)
[2022-02-20] MEDS ORDERED: ONDA4TAB6 PO (18:32)
[2022-02-20 19:05] VITALS: BP 133/87
== END 2022-02-20 19:00 | disposition home or self-care (01) ==
LOC: M ED 14:14
DX: O21.9 Vomiting of pregnancy, unspecified (principal); O26.891 Other specified pregnancy related conditions, first trimester; R10.9 Unspecified abdominal pain; Z88.5 Allergy status to narcotic agent; Z3A.01 Less than 8 weeks gestation of pregnancy; Z79.899 Other long term (current) drug therapy

== ENCOUNTER → 2022-02-23 | Outpatient (CLI) | payer OTHER ==
[2022-02-23 11:08] LABS: APPEARANCE, URINE MANUAL HAZY (CLEAR); BILIRUBIN, URINE MANUAL NEGATIVE (NEGATIVE); BLOOD URINE MANUAL TRACE (NEGATIVE); COLOR, URINE MANUAL YELLOW (YELLOW); GLUCOSE, URINE (UA) MANUAL NEGATIVE (NEGATIVE); KETONE, URINE MANUAL NEGATIVE (NEGATIVE); LEUKOCYTE ESTERASE, URINE MAN TRACE (NEGATIVE); NITRITE, URINE MANUAL NEGATIVE (NEGATIVE); PROTEIN, URINE MANUAL TRACE mg/dL (NEGATIVE); SPECIFIC GRAVITY,URINE MANUAL 1.015 (1.002-1.035); UROBILINOGEN, URINE MANUAL 1 MG mg/dl (NORMAL)
[2022-02-23 11:27] LABS: BACTERIA, URINE SMALL AMOUNT; CALCIUM OXALATE CRYSTALS,URINE MOD AMOUNT /hpf; RBC, URINE 0-1 /hpf (0-3); SQUAMOUS EPITHELIAL CELL URINE MOD AMOUNT /hpf (SMALL AMT)
[2022-02-23 11:28] LABS: AMORPHOUS SEDIMENT, URINE SMALL AMOUNT (NEGATIVE); HYALINE CAST, URINE NONE SEEN /lpf (0-1); MUCUS, URINE MOD AMOUNT (NEGATIVE)
== END ==
LOC: M PLALAB 08:09
PROVIDERS: ATTEND Advanced Practice Midwife
DX: R30.0 Dysuria (principal)

== ENCOUNTER 2022-03-08 12:00 | Emergency (ER) | payer OTHER ==
[~2022-03-08] VITALS: Ht 157.5 cm; Wt 105.1 kg
[2022-03-08] MEDS ORDERED: PYRI25TA2 PO (15:20)
[2022-03-08] MEDS ORDERED: UNIS25TA3 PO (15:20)
[2022-03-08] MEDS ORDERED: ONDA4TAB6 PO (15:20)
[2022-03-08 15:28] VITALS: BP 152/92
[2022-03-08 17:00] LABS: GC DNA AMPLIFICATION NEGATIVE (NEGATIVE)
== END 2022-03-08 15:30 | disposition home or self-care (01) ==
LOC: M ED 12:00
DX: O26.891 Other specified pregnancy related conditions, first trimester (principal); R30.0 Dysuria; O21.9 Vomiting of pregnancy, unspecified; Z88.5 Allergy status to narcotic agent; Z79.899 Other long term (current) drug therapy; Z3A.00 Weeks of gestation of pregnancy not specified

== ENCOUNTER 2022-03-16 08:22 | Emergency (ER) | payer OTHER ==
[~2022-03-16] VITALS: Ht 157.5 cm; Wt 104.5 kg
[~2022-03-16 08:22] MED LIST changes: +PYRI25TA2 PO; +UNIS25TA3 PO
[2022-03-16] MEDS ORDERED: ACETAMINOPHEN 500 MG TAB PO ONE (11:30)
[2022-03-16 12:08] VITALS: BP 137/90
== END 2022-03-16 12:09 | disposition home or self-care (01) ==
LOC: M ED 12:02
DX: O9A.211 Injury, poisoning and certain other consequences of external causes complicating pregnancy, first trimester (principal); S30.0XXA Contusion of lower back and pelvis, initial encounter; Z3A.11 11 weeks gestation of pregnancy; Z88.5 Allergy status to narcotic agent; Z79.899 Other long term (current) drug therapy

== ENCOUNTER → 2022-03-18 | Outpatient (CLI) | payer OTHER ==
[2022-03-18 18:40] LABS: HEMATOCRIT 37.5 % (36.0-47.0); HEMOGLOBIN 12.6 g/dl (12.0-15.5); MEAN CORPUSCULAR HEMOGLOBIN 30.3 pg (27.0-33.0); MEAN CORPUSCULAR HGB CONC 33.6 g/dl (32.0-36.5); MEAN CORPUSCULAR VOLUME 90.1 fl (80.0-96.0); PLATELET COUNT, AUTOMATED 271 10^3/uL (150-450); RED BLOOD COUNT 4.16 10^6/uL (4.00-5.40); WHITE BLOOD COUNT 12.2 10^3/uL (4.0-10.0)
[2022-03-18 19:34] LABS: HIV 1&2 SCREEN CENTAUR NEGATIVE (NEGATIVE)
[2022-03-18 20:53] LABS: GC DNA AMPLIFICATION NEGATIVE (NEGATIVE)
== END ==
LOC: M PLALAB 14:52
PROVIDERS: ATTEND Obstetrics & Gynecology
DX: O34.211 Maternal care for low transverse scar from previous cesarean delivery (principal); Z3A.00 Weeks of gestation of pregnancy not specified

== ENCOUNTER 2022-03-31 10:34 | Emergency (ER) | payer OTHER ==
[~2022-03-31] VITALS: Ht 157.5 cm; Wt 104.9 kg
[2022-03-31] MEDS ORDERED: NS 1,000 ML IV ONE (11:40)
[2022-03-31] MEDS ORDERED: PROMETHAZINE 25MG/ML 1ML VIAL IV ONE (11:40)
[2022-03-31] MEDS ORDERED: PROM12.54 PR (14:35)
[2022-03-31 14:39] VITALS: BP 121/67
== END 2022-03-31 14:43 | disposition home or self-care (01) ==
LOC: M ED 10:34
DX: O21.9 Vomiting of pregnancy, unspecified (principal); Z3A.13 13 weeks gestation of pregnancy; Z79.899 Other long term (current) drug therapy
CPT/HCPCS: 81000; 81015; 87086; 96361; 96374; 99284; J2550

== ENCOUNTER 2022-04-10 11:16 | Emergency (ER) | payer OTHER ==
[~2022-04-10] VITALS: Ht 157.5 cm; Wt 107.0 kg
[~2022-04-10 11:16] MED LIST changes: +PROM12.54 PR
[2022-04-10 12:08] LABS: BASO % 0.3 % (0.0-1.0); EOS % 0.2 % (0.0-3.0); HEMATOCRIT 36.5 % (36.0-47.0); HEMOGLOBIN 12.3 g/dl (12.0-15.5); LYMPH # 1.9 10^3/uL (1.5-5.0); LYMPH % 18.1 % (24.0-44.0); MEAN CORPUSCULAR HEMOGLOBIN 30.1 pg (27.0-33.0); MEAN CORPUSCULAR HGB CONC 33.7 g/dl (32.0-36.5); MEAN CORPUSCULAR VOLUME 89.5 fl (80.0-96.0); MONO # 0.6 10^3/uL (0.0-0.8); MONO % 5.2 % (2.0-8.0); NEUTROPHILS % 75.5 % (36.0-66.0); PLATELET COUNT, AUTOMATED 266 10^3/uL (150-450); RED BLOOD COUNT 4.08 10^6/uL (4.00-5.40); WHITE BLOOD COUNT 10.6 10^3/uL (4.0-10.0)
[2022-04-10 13:16] LABS: ALKALINE PHOSPHATASE 100 U/L (46-116); ALT/SGPT 46 U/L (7.0-40); AST/SGOT 23 U/L (<34); BILIRUBIN,TOTAL 0.5 MG/DL (0.3-1.2); BLOOD UREA NITROGEN 10 MG/DL (9-23); CALCIUM LEVEL 8.3 MG/DL (8.5-10.1); CARBON DIOXIDE LEVEL 24 MMOL/L (20-31); CHLORIDE LEVEL 104 MMOL/L (98-107); CREATININE FOR GFR 0.65 MG/DL (0.55-1.30); GLOMERULAR FILTRATION RATE > 60.0 (>60); GLUCOSE, FASTING 87 MG/DL (60-100); POTASSIUM SERUM 3.9 MMOL/L (3.5-5.1); SODIUM LEVEL 136 MMOL/L (136-145); TOTAL PROTEIN 6.3 G/DL (5.7-8.2)
[2022-04-10] MEDS ORDERED: NS 1,000 ML IV ONE (13:20)
[2022-04-10 13:40] LABS: THYROID STIMULATING HORMONE 0.966 uIU/ML (0.55-4.78); THYROXINE (T4) 17.1 UG/DL (4.5-10.9)
[2022-04-10 13:41] LABS: FREE THYROXINE INDEX 2.6 % (1.3-4.8)
[2022-04-10] MEDS ORDERED: NITROFURANTOIN (MACROBID) 100 MG CAP PO ONE (14:25)
[2022-04-10] MEDS ORDERED: MACR100C43 PO (14:26)
[2022-04-10 14:43] VITALS: BP 130/61
== END 2022-04-10 14:44 | disposition home or self-care (01) ==
LOC: M ED 11:16
DX: O23.42 Unspecified infection of urinary tract in pregnancy, second trimester (principal); R42 Dizziness and giddiness; Z3A.14 14 weeks gestation of pregnancy; Z88.5 Allergy status to narcotic agent; Z79.899 Other long term (current) drug therapy

== ENCOUNTER → 2022-05-12 | Outpatient (CLI) | payer OTHER ==
[~2022-05-12] MED LIST changes: +MACR100C43 PO
== END ==
LOC: M WHC 09:27
PROVIDERS: ATTEND Obstetrics & Gynecology
DX: O34.211 Maternal care for low transverse scar from previous cesarean delivery (principal)

== ENCOUNTER → 2022-06-07 | Outpatient (CLI) | payer OTHER | LOC: M WHC 12:42 | PROVIDERS: ATTEND Advanced Practice Midwife | DX: Z34.92 Encounter for supervision of normal pregnancy, unspecified, second trimester (principal); Z3A.23 23 weeks gestation of pregnancy ==

== ENCOUNTER 2022-06-15 08:23 | Emergency (ER) | payer MEDICAID, OTHER ==
[~2022-06-15] VITALS: Ht 157.5 cm; Wt 114.2 kg
[2022-06-15 08:24] VITALS: BP 136/84
[2022-06-15] MEDS ORDERED: VITA1CAP52 PO (09:04)
== END 2022-06-15 08:39 | disposition admitted as inpatient to this hospital (09) ==
LOC: M ED 08:23
DX: Z53.9 Procedure and treatment not carried out, unspecified reason (principal)

== ENCOUNTER 2022-07-05 14:28 | Outpatient (CLI) | payer OTHER, MEDICAID ==
[~2022-07-05] VITALS: Ht 157.5 cm; Wt 117.4 kg
[~2022-07-05 14:28] MED LIST changes: +VITA1CAP52 PO
[2022-07-05] MEDS ORDERED: ACET-907 PO (14:56)
[2022-07-05] MEDS ORDERED: TUMS500C PO (14:58)
[2022-07-05 15:04] VITALS: BP 135/66
[2022-07-05] MEDS ORDERED: ACETAMINOPHEN 500 MG TAB PO PRN (15:35)
[2022-07-05] MEDS ORDERED: HOME MED LIST COMPLETE! XX SCH (15:40)
[2022-07-05 15:42] LABS: HEMATOCRIT 31.8 % (36.0-47.0); HEMOGLOBIN 10.6 g/dl (12.0-15.5); MEAN CORPUSCULAR HEMOGLOBIN 30.2 pg (27.0-33.0); MEAN CORPUSCULAR HGB CONC 33.3 g/dl (32.0-36.5); MEAN CORPUSCULAR VOLUME 90.6 fl (80.0-96.0); PLATELET COUNT, AUTOMATED 217 10^3/uL (150-450); RED BLOOD COUNT 3.51 10^6/uL (4.00-5.40); WHITE BLOOD COUNT 12.7 10^3/uL (4.0-10.0)
[2022-07-05 15:52] LABS: APPEARANCE, URINE HAZY (CLEAR); BACTERIA, URINE AUTO 1+ (NEGATIVE); BILIRUBIN, URINE AUTO NEGATIVE (NEGATIVE); BLOOD, URINE BLOOD NEGATIVE (NEGATIVE); COLOR, URINE YELLOW (YELLOW); GLUCOSE, URINE (UA) AUTO NEGATIVE (NEGATIVE); KETONE, URINE AUTO NEGATIVE (NEGATIVE); LEUKOCYTE ESTERASE, URINE AUTO NEGATIVE (NEGATIVE); MUCUS, URINE SMALL (NEGATIVE); NITRITE, URINE AUTO NEGATIVE (NEGATIVE); PROTEIN, URINE AUTO NEGATIVE (NEGATIVE); RBC, URINE AUTO 21 /HPF (0-3); SPECIFIC GRAVITY URINE AUTO 1.024 (1.002-1.035); SQUAMOUS EPITHELIAL CELL UR AU 9 /HPF (0-6); UROBILINOGEN, URINE AUTO 0.2 mg/dL (0.0-2.0); WBC, URINE AUTO 2 /HPF (0-3)
[2022-07-05 16:03] VITALS: BP 138/80
[2022-07-05 16:17] LABS: ALBUMIN 2.8 G/DL (3.2-5.2); ALKALINE PHOSPHATASE 110 U/L (46-116); ALT/SGPT 20 U/L (7.0-40); AST/SGOT 20 U/L (<34); BILIRUBIN,TOTAL 0.4 MG/DL (0.3-1.2); BLOOD UREA NITROGEN 10 MG/DL (9-23); CALCIUM LEVEL 8.6 MG/DL (8.5-10.1); CARBON DIOXIDE LEVEL 24 MMOL/L (20-31); CHLORIDE LEVEL 106 MMOL/L (98-107); CREATININE FOR GFR 0.58 MG/DL (0.55-1.30); GLOMERULAR FILTRATION RATE > 60.0 (>60); GLUCOSE, FASTING 83 MG/DL (60-100); POTASSIUM SERUM 3.9 MMOL/L (3.5-5.1); SODIUM LEVEL 136 MMOL/L (136-145)
[2022-07-05 17:17] VITALS: BP 109/58
== END 2022-07-05 19:20 | disposition home or self-care (01) ==
LOC: M LDO 14:28
PROVIDERS: ATTEND Obstetrics & Gynecology
DX: O26.892 Other specified pregnancy related conditions, second trimester (principal); R10.31 Right lower quadrant pain; O34.219 Maternal care for unspecified type scar from previous cesarean delivery; Z3A.27 27 weeks gestation of pregnancy
CPT/HCPCS: 36415; 59025; 76775; 80053; 81001; 85027; 87086; G0463

== ENCOUNTER → 2022-07-12 | Outpatient (CLI) | payer OTHER ==
[~2022-07-12] MED LIST changes: +ACET-907 PO; +TUMS500C PO
[2022-07-12 14:57] LABS: GC DNA AMPLIFICATION NEGATIVE (NEGATIVE)
== END ==
LOC: M PLALAB 08:14
PROVIDERS: ATTEND Obstetrics & Gynecology
DX: Z34.92 Encounter for supervision of normal pregnancy, unspecified, second trimester (principal)

== ENCOUNTER → 2022-07-20 | Outpatient (CLI) | payer OTHER | LOC: M LAB 07:19 | PROVIDERS: ATTEND Obstetrics & Gynecology | DX: R73.09 Other abnormal glucose (principal) ==

== ENCOUNTER 2022-07-26 11:08 | Outpatient (CLI) | payer OTHER ==
[~2022-07-26] VITALS: Ht 157.5 cm; Wt 119.8 kg
[2022-07-26 11:45] VITALS: BP 128/59
[2022-07-26] MEDS ORDERED: HOME MED LIST COMPLETE! XX SCH (11:45)
[2022-07-26] MEDS ORDERED: ACETAMINOPHEN 500 MG TAB PO ONE (12:05)
[2022-07-26 14:00] VITALS: BP 121/57
== END 2022-07-26 14:16 | disposition home or self-care (01) ==
LOC: M LDO 11:08
PROVIDERS: ATTEND Obstetrics & Gynecology
DX: O26.893 Other specified pregnancy related conditions, third trimester (principal); R10.2 Pelvic and perineal pain; O34.219 Maternal care for unspecified type scar from previous cesarean delivery; Z3A.30 30 weeks gestation of pregnancy
CPT/HCPCS: 59025; G0463

== ENCOUNTER 2022-08-13 16:39 | Outpatient (CLI) | payer OTHER, MEDICAID ==
[~2022-08-13] VITALS: Ht 157.5 cm; Wt 119.5 kg
[2022-08-13 17:04] VITALS: BP 141/69
[2022-08-13 17:08] VITALS: BP 101/62
[2022-08-13 18:14] LABS: APPEARANCE, URINE HAZY (CLEAR); BACTERIA, URINE AUTO 1+ (NEGATIVE); BILIRUBIN, URINE AUTO NEGATIVE (NEGATIVE); BLOOD, URINE BLOOD 3+ (NEGATIVE); COLOR, URINE YELLOW (YELLOW); GLUCOSE, URINE (UA) AUTO NEGATIVE (NEGATIVE); KETONE, URINE AUTO NEGATIVE (NEGATIVE); LEUKOCYTE ESTERASE, URINE AUTO NEGATIVE (NEGATIVE); MUCUS, URINE SMALL (NEGATIVE); NITRITE, URINE AUTO NEGATIVE (NEGATIVE); PROTEIN, URINE AUTO NEGATIVE (NEGATIVE); RBC, URINE AUTO TNTC /HPF (0-3); SQUAMOUS EPITHELIAL CELL UR AU 10 /HPF (0-6); WBC, URINE AUTO 4 /HPF (0-3)
[2022-08-13 18:46] VITALS: BP 119/73
[2022-08-13 20:15] VITALS: BP 115/60
== END 2022-08-13 20:18 | disposition home or self-care (01) ==
LOC: M LDO 16:39
PROVIDERS: ATTEND Obstetrics & Gynecology
DX: O26.893 Other specified pregnancy related conditions, third trimester (principal); R10.2 Pelvic and perineal pain; Z3A.32 32 weeks gestation of pregnancy

== ENCOUNTER → 2022-09-01 | Outpatient (REF) | payer MEDICAID, OTHER | LOC: M SFHCWAGY 10:01 | PROVIDERS: ATTEND Advanced Practice Midwife | DX: O99.213 Obesity complicating pregnancy, third trimester (principal) ==

== ENCOUNTER 2022-09-11 17:02 | Outpatient (CLI) | payer OTHER, MEDICAID ==
[~2022-09-11] VITALS: Ht 157.5 cm; Wt 122.7 kg
[2022-09-11] MEDS ORDERED: HOME MED LIST COMPLETE! XX SCH (17:20)
[2022-09-11 17:24] VITALS: BP 125/71
== END 2022-09-11 21:35 | disposition home or self-care (01) ==
LOC: M LDO 17:02
PROVIDERS: ATTEND Obstetrics & Gynecology
DX: O47.03 False labor before 37 completed weeks of gestation, third trimester (principal); O34.211 Maternal care for low transverse scar from previous cesarean delivery; O32.1XX9 Maternal care for breech presentation, other fetus; Z3A.36 36 weeks gestation of pregnancy
CPT/HCPCS: 59025; G0463

== ENCOUNTER 2022-09-23 23:28 | Outpatient (CLI) | payer OTHER, MEDICAID ==
[~2022-09-23] VITALS: Ht 157.5 cm; Wt 125.6 kg
[2022-09-23 23:50] VITALS: BP 125/65
== END 2022-09-24 02:25 | disposition home or self-care (01) ==
LOC: M LDO 23:28
PROVIDERS: ATTEND Advanced Practice Midwife
DX: O47.1 False labor at or after 37 completed weeks of gestation (principal); O34.219 Maternal care for unspecified type scar from previous cesarean delivery; O99.213 Obesity complicating pregnancy, third trimester; E66.9 Obesity, unspecified; Z87.51 Personal history of pre-term labor; Z3A.38 38 weeks gestation of pregnancy; Z88.5 Allergy status to narcotic agent
CPT/HCPCS: 59025; G0463

== ENCOUNTER 2022-09-27 06:56 | Inpatient (IN) | payer OTHER ==
[~2022-09-27] VITALS: Ht 157.5 cm; Wt 124.3 kg
[2022-09-27] VITALS (9 sets, daily range): BP systolic 115–141; BP diastolic 57–79; TEMP 96.8; O2SAT 97–100
[2022-09-27] MEDS ORDERED: HOME MED LIST COMPLETE! XX SCH (07:40)
[2022-09-27 07:56] LABS: HEMATOCRIT 35.7 % (36.0-47.0); HEMOGLOBIN 11.8 g/dl (12.0-15.5); MEAN CORPUSCULAR HGB CONC 33.1 g/dl (32.0-36.5); MEAN CORPUSCULAR VOLUME 87.7 fl (80.0-96.0); PLATELET COUNT, AUTOMATED 211 10^3/uL (150-450); RED BLOOD COUNT 4.07 10^6/uL (4.00-5.40); WHITE BLOOD COUNT 11.8 10^3/uL (4.0-10.0)
[2022-09-27] MEDS ORDERED: TRANEXAMIC ACID INJection 1,000 MG in NS 100 ML IV PRN (08:55)
[2022-09-27] MEDS ORDERED: LACTATED RINGER'S 1000 ML IV STA (08:55)
[2022-09-27] MEDS ORDERED: METHYLERGONOVINE MALEATE 0.2MG/ML 1ML VIAL IM PRN (08:55)
[2022-09-27] MEDS ORDERED: ceFAZolin SOD 3 GM IV Place Holder IV ONE (08:55)
[2022-09-27] MEDS ORDERED: BICITRA 30ML SOLN UDC PO ONE (09:00)
[2022-09-27] MEDS: LR 1,000 ML IV SCH ×2 (09:22→16:50)
[2022-09-27] MEDS ORDERED: ceFAZolin SOD 2 GM in IV 1 EA IV ONE (09:30)
[2022-09-27] MEDS ORDERED: ceFAZolin SOD 1 GM in D5W MINI-BAG PLUS 50 ML IV ONE (10:10)
[2022-09-27] MEDS ORDERED: ACETAMINOPHEN 1000MG 100ML IV BAG As Ordered ONE (10:18)
[2022-09-27] MEDS ORDERED: ONDANSETRON 4MG 2ML VIAL As Ordered ONE (10:18)
[2022-09-27] MEDS ORDERED: KETOROLAC 60MG 2ML VIAL As Ordered ONE (10:18)
[2022-09-27] MEDS ORDERED: ePHEDrine SULFATE 25 MG/5 ML(5MG/ML) SYRINGE As Ordered ONE (10:18)
[2022-09-27] MEDS ORDERED: OXYTOCIN 30UNITS IN 0.9% NaCl 500ML IV BAG As Ordered ONE ×2 (10:26→12:12)
[2022-09-27] MEDS ORDERED: NALOXONE INJ 0.4MG/1ML VIAL IV PRN ×2 (11:45)
[2022-09-27] MEDS ORDERED: oxyCODONE 5MG TAB PO PRN (11:45)
[2022-09-27] MEDS ORDERED: diphenhydrAMINE 50MG/ML VIAL IV PRN (11:45)
[2022-09-27] MEDS: SLF 3 ML SYR IV SCH ×2 (11:45→19:45)
[2022-09-27] MEDS ORDERED: METOCLOPRAMIDE INJ 10MG/2ML VIAL IV PRN ×2 (11:45→13:25)
[2022-09-27] MEDS ORDERED: **NOTE PATIENT COMMENT** MISC XX SCH (11:45)
[2022-09-27] MEDS ORDERED: fentaNYL 100 MCG/2 ML INJECTION IV PRN (11:45)
[2022-09-27] MEDS ORDERED: ONDANSETRON 4MG 2ML VIAL IV PRN ×2 (11:45→13:25)
[2022-09-27] MEDS ORDERED: HYDROMORPHONE HCL 0.5 MG/ 0.5 ML SYRINGE IV PRN (11:45)
[2022-09-27] MEDS ORDERED: OXYTOCIN DRIP 30 UNITS in IV 1 EA IV SCH (12:00)
[2022-09-27] MEDS ORDERED: oxyCODONE 5MG TAB As Ordered ONE (12:34)
[2022-09-27] MEDS ORDERED: RHOGAM 300MCG (1500IU) INJ IM SCH (13:25)
[2022-09-27] MEDS ORDERED: PERCOCET 5MG/325MG TAB PO PRN (13:25)
[2022-09-27] MEDS ORDERED: LR 1,000 ML IV SCH (13:25)
[2022-09-27] MEDS ORDERED: MOM 30ML SUSPENSION UDC PO PRN (13:25)
[2022-09-27] MEDS ORDERED: SIMETHICONE 80MG CHEW TAB PO PRN (13:25)
[2022-09-27] MEDS: KETOROLAC 30 MG/ML 1ML VIAL IV SCH ×2 (16:41→23:06)
[2022-09-27] MEDS: DOCUSATE SODIUM 100MG CAPSULE PO SCH (19:55)
[2022-09-27] MEDS: PERCOCET 5MG/325MG TAB PO PRN (20:01)
[2022-09-28 02:35] VITALS: BP 138/85; O2SAT 98
[2022-09-28] MEDS: SLF 3 ML SYR IV SCH (03:45)
[2022-09-28] MEDS: KETOROLAC 30 MG/ML 1ML VIAL IV SCH (05:12)
[2022-09-28 06:06] VITALS: BP 149/81; O2SAT 98
[2022-09-28 06:57] LABS: HEMATOCRIT 29.2 % (36.0-47.0); MEAN CORPUSCULAR HEMOGLOBIN 29.2 pg (27.0-33.0); MEAN CORPUSCULAR HGB CONC 32.9 g/dl (32.0-36.5); MEAN CORPUSCULAR VOLUME 88.8 fl (80.0-96.0); PLATELET COUNT, AUTOMATED 177 10^3/uL (150-450); RED BLOOD COUNT 3.29 10^6/uL (4.00-5.40); WHITE BLOOD COUNT 10.9 10^3/uL (4.0-10.0)
[2022-09-28 06:58] LABS: HEMOGLOBIN 9.6 g/dl (12.0-15.5)
[2022-09-28] MEDS: DOCUSATE SODIUM 100MG CAPSULE PO SCH ×2 (07:59→20:20)
[2022-09-28] MEDS: PRENATAL VITAMINS CHEWABLE TABLET PO SCH (07:59)
[2022-09-28 10:00] VITALS: BP 107/64; O2SAT 98
[2022-09-28] MEDS: PERCOCET 5MG/325MG TAB PO PRN (12:09)
[2022-09-28] MEDS: IBUPROFEN 800 MG TAB PO SCH ×2 (13:27→20:20)
[2022-09-28 14:00] VITALS: BP 134/69; O2SAT 99
[2022-09-28 18:00] VITALS: BP 125/66; O2SAT 98
[2022-09-28 22:00] VITALS: BP 133/66; O2SAT 99
[2022-09-29 02:00] VITALS: BP 131/82; O2SAT 99
[2022-09-29] MEDS: IBUPROFEN 800 MG TAB PO SCH (05:49)
[2022-09-29 06:00] VITALS: BP 118/77; O2SAT 100
[2022-09-29] MEDS ORDERED: COLA100C5 PO (07:40)
[2022-09-29] MEDS ORDERED: PERCOCET PO (07:40)
[2022-09-29] MEDS ORDERED: IBUP80TA PO (07:40)
[2022-09-29] MEDS: DOCUSATE SODIUM 100MG CAPSULE PO SCH (08:00)
[2022-09-29] MEDS: PRENATAL VITAMINS CHEWABLE TABLET PO SCH (08:00)
[2022-09-29] MEDS ORDERED: MEASLES,MUMPS,RUBELLA VACCINE INJ (MMR-II) SC.IMMUN ONE (09:00)
[2022-09-29 10:00] VITALS: BP 117/68; O2SAT 100
== END 2022-09-29 12:00 | disposition home or self-care (01) | DRG 540 ==
LOC: M LDI 06:56 → M OBS 12:45
PROVIDERS: ADMIT Obstetrics & Gynecology; ATTEND Obstetrics & Gynecology
PROC: 10D00Z1 Extraction of Products of Conception, Low, Open Approach (ICD-10-PCS; principal; 2022-09-27 09:30)
DX: O34.211 Maternal care for low transverse scar from previous cesarean delivery (principal); E66.01 Morbid (severe) obesity due to excess calories; O99.214 Obesity complicating childbirth; Z3A.39 39 weeks gestation of pregnancy; Z37.0 Single live birth

== ENCOUNTER → 2023-06-28 | Outpatient (REF) | payer OTHER, MEDICAID ==
[~2023-06-28] MED LIST changes: +PERCOCET PO
== END ==
LOC: M SFHCDERM 17:31
PROVIDERS: ATTEND Physician Assistant
DX: D17.24 Benign lipomatous neoplasm of skin and subcutaneous tissue of left leg (principal)

== ENCOUNTER → 2023-07-18 | Outpatient (CLI) | payer OTHER ==
[2023-07-18 17:24] LABS: BASO # 0.1 10^3/uL (0.0-0.2); BASO % 0.6 % (0.0-1.0); EOS % 0.2 % (0.0-3.0); HEMATOCRIT 38.9 % (36.0-47.0); HEMOGLOBIN 12.3 g/dl (12.0-15.5); LYMPH # 2.6 10^3/uL (1.5-5.0); LYMPH % 26.9 % (24.0-44.0); MEAN CORPUSCULAR HEMOGLOBIN 27.2 pg (27.0-33.0); MEAN CORPUSCULAR HGB CONC 31.6 g/dl (32.0-36.5); MEAN CORPUSCULAR VOLUME 86.1 fl (80.0-96.0); MONO # 0.7 10^3/uL (0.0-0.8); MONO % 7.1 % (2.0-8.0); NEUTROPHILS # 6.2 10^3/uL (1.5-8.5); NEUTROPHILS % 64.9 % (36.0-66.0); PLATELET COUNT, AUTOMATED 314 10^3/uL (150-450); RED BLOOD COUNT 4.52 10^6/uL (4.00-5.40); WHITE BLOOD COUNT 9.6 10^3/uL (4.0-10.0)
[2023-07-18 17:51] LABS: ALBUMIN 3.8 G/DL (3.2-5.2); ALKALINE PHOSPHATASE 118 U/L (46-116); ALT/SGPT 14 U/L (7.0-40); AST/SGOT 9 U/L (<34); BILIRUBIN,TOTAL 1.1 MG/DL (0.3-1.2); BLOOD UREA NITROGEN 10 MG/DL (9-23); CALCIUM LEVEL 9.1 MG/DL (8.5-10.1); CARBON DIOXIDE LEVEL 27 MMOL/L (20-31); CHLORIDE LEVEL 107 MMOL/L (98-107); CREATININE FOR GFR 0.78 MG/DL (0.55-1.30); GLOMERULAR FILTRATION RATE > 60.0 (>60); GLUCOSE, FASTING 85 MG/DL (60-100); POTASSIUM SERUM 3.5 MMOL/L (3.5-5.1); SODIUM LEVEL 142 MMOL/L (136-145); TOTAL PROTEIN 6.9 G/DL (5.7-8.2)
[2023-07-18 17:56] LABS: HCG, SERUM QUALITATIVE NEGATIVE (NEGATIVE)
[2023-07-19 09:09] LABS: LIPASE 30 U/L (12-53)
== END ==
LOC: M PLALAB 15:25
PROVIDERS: ATTEND Physician Assistant Medical
DX: R10.30 Lower abdominal pain, unspecified (principal); R11.14 Bilious vomiting

== ENCOUNTER 2023-11-09 20:12 | Emergency (ER) | payer OTHER ==
[~2023-11-09] VITALS: Ht 157.5 cm; Wt 104.5 kg
[~2023-11-09 20:12] MED LIST changes: +ONDA-282 PO; -ONDA4TAB6 PO
[2023-11-09] MEDS: NS 1,000 ML IV ONE (21:22)
[2023-11-09] MEDS: ONDANSETRON 4MG 2ML VIAL IV ONE (21:22)
[2023-11-09 21:25] LABS: BASO # 0.1 10^3/uL (0.0-0.2); BASO % 0.6 % (0.0-1.0); EOS % 0.3 % (0.0-3.0); HEMATOCRIT 36.4 % (36.0-47.0); HEMOGLOBIN 11.8 g/dl (12.0-15.5); LYMPH # 2.9 10^3/uL (1.5-5.0); LYMPH % 27.7 % (24.0-44.0); MEAN CORPUSCULAR HEMOGLOBIN 27.6 pg (27.0-33.0); MEAN CORPUSCULAR HGB CONC 32.4 g/dl (32.0-36.5); MONO # 0.6 10^3/uL (0.0-0.8); MONO % 5.6 % (2.0-8.0); NEUTROPHILS # 6.8 10^3/uL (1.5-8.5); NEUTROPHILS % 65.5 % (36.0-66.0); PLATELET COUNT, AUTOMATED 244 10^3/uL (150-450); RED BLOOD COUNT 4.28 10^6/uL (4.00-5.40); WHITE BLOOD COUNT 10.3 10^3/uL (4.0-10.0)
[2023-11-09 21:57] LABS: HCG, SERUM QUALITATIVE NEGATIVE (NEGATIVE)
[2023-11-09 22:00] LABS: CK-MB VALUE MASS < 1.0 NG/ML (<3.6)
[2023-11-09 22:02] LABS: CPK CREATINE PHOSPHOKINASE 136 U/L (34-145); MB/CK RELATIVE INDEX 0.73 (< OR =4)
[2023-11-09 22:03] LABS: BLOOD UREA NITROGEN 12 MG/DL (9-23); CALCIUM LEVEL 9.3 MG/DL (8.5-10.1); CARBON DIOXIDE LEVEL 25 MMOL/L (20-31); CHLORIDE LEVEL 106 MMOL/L (98-107); CREATININE FOR GFR 0.82 MG/DL (0.55-1.30); GLOMERULAR FILTRATION RATE > 60.0 (>60); GLUCOSE, FASTING 116 MG/DL (60-100); POTASSIUM SERUM 3.6 MMOL/L (3.5-5.1); SODIUM LEVEL 140 MMOL/L (136-145)
[2023-11-09 22:04] LABS: THYROID STIMULATING HORMONE 1.512 uIU/ML (0.55-4.78)
[2023-11-09 23:02] VITALS: BP 115/55; TEMP 97.6; O2SAT 100
== END 2023-11-09 23:04 | disposition home or self-care (01) ==
LOC: M ED 20:12
DX: F12.120 Cannabis abuse with intoxication, uncomplicated (principal); R55 Syncope and collapse; R00.0 Tachycardia, unspecified; K21.9 Gastro-esophageal reflux disease without esophagitis; Z88.5 Allergy status to narcotic agent; Z91.09 Other allergy status, other than to drugs and biological substances; Z79.1 Long term (current) use of non-steroidal anti-inflammatories (NSAID); Z79.810 Long term (current) use of selective estrogen receptor modulators (SERMs); Z79.899 Other long term (current) drug therapy
CPT/HCPCS: 70450; 80048; 82550; 82553; 84443; 84484; 84703; 85025; 93005; 93041; 94760; 96361; 96374; 99285; J2405

== ENCOUNTER 2023-11-11 06:34 | Emergency (ER) | payer OTHER ==
[~2023-11-11] VITALS: Ht 157.5 cm; Wt 105.8 kg
[2023-11-11 08:24] LABS: BASO # 0.1 10^3/uL (0.0-0.2); BASO % 0.8 % (0.0-1.0); EOS % 0.2 % (0.0-3.0); HEMATOCRIT 36.4 % (36.0-47.0); HEMOGLOBIN 11.9 g/dl (12.0-15.5); LYMPH # 1.8 10^3/uL (1.5-5.0); LYMPH % 27.1 % (24.0-44.0); MEAN CORPUSCULAR HEMOGLOBIN 27.6 pg (27.0-33.0); MEAN CORPUSCULAR HGB CONC 32.7 g/dl (32.0-36.5); MEAN CORPUSCULAR VOLUME 84.5 fl (80.0-96.0); MONO # 0.4 10^3/uL (0.0-0.8); MONO % 6.1 % (2.0-8.0); NEUTROPHILS # 4.3 10^3/uL (1.5-8.5); NEUTROPHILS % 65.5 % (36.0-66.0); PLATELET COUNT, AUTOMATED 243 10^3/uL (150-450); RED BLOOD COUNT 4.31 10^6/uL (4.00-5.40); WHITE BLOOD COUNT 6.6 10^3/uL (4.0-10.0)
[2023-11-11 08:51] LABS: BLOOD UREA NITROGEN 11 MG/DL (9-23); CALCIUM LEVEL 8.7 MG/DL (8.5-10.1); CARBON DIOXIDE LEVEL 26 MMOL/L (20-31); CHLORIDE LEVEL 108 MMOL/L (98-107); CREATININE FOR GFR 0.72 MG/DL (0.55-1.30); GLOMERULAR FILTRATION RATE > 60.0 (>60); GLUCOSE, FASTING 97 MG/DL (60-100); POTASSIUM SERUM 3.9 MMOL/L (3.5-5.1); SODIUM LEVEL 138 MMOL/L (136-145)
[2023-11-11] MEDS ORDERED: HYDR-3363 PO (09:02)
[2023-11-11 09:17] VITALS: BP 124/73; TEMP 99.7; O2SAT 99
== END 2023-11-11 09:19 | disposition home or self-care (01) ==
LOC: M ED 06:34
DX: R53.1 Weakness (principal); Z88.5 Allergy status to narcotic agent; Z91.09 Other allergy status, other than to drugs and biological substances; Z79.1 Long term (current) use of non-steroidal anti-inflammatories (NSAID); Z79.810 Long term (current) use of selective estrogen receptor modulators (SERMs); Z79.899 Other long term (current) drug therapy

== ENCOUNTER 2023-12-30 06:17 | Emergency (ER) | payer MEDICAID, OTHER ==
[~2023-12-30] VITALS: Ht 157.5 cm; Wt 107.2 kg
[~2023-12-30 06:17] MED LIST changes: +HYDR-3363 PO
[2023-12-30 06:51] LABS: BASO # 0.1 10^3/uL (0.0-0.2); EOS % 0.5 % (0.0-3.0); HEMATOCRIT 36.6 % (36.0-47.0); HEMOGLOBIN 11.7 g/dl (12.0-15.5); LYMPH # 2.3 10^3/uL (1.5-5.0); LYMPH % 30.3 % (24.0-44.0); MEAN CORPUSCULAR HEMOGLOBIN 27.5 pg (27.0-33.0); MEAN CORPUSCULAR VOLUME 86.1 fl (80.0-96.0); MONO # 0.5 10^3/uL (0.0-0.8); NEUTROPHILS # 4.7 10^3/uL (1.5-8.5); NEUTROPHILS % 60.9 % (36.0-66.0); PLATELET COUNT, AUTOMATED 274 10^3/uL (150-450); RED BLOOD COUNT 4.25 10^6/uL (4.00-5.40); WHITE BLOOD COUNT 7.7 10^3/uL (4.0-10.0)
[2023-12-30 07:16] LABS: LIPASE 29 U/L (12-53)
[2023-12-30 07:18] LABS: ALBUMIN 3.5 G/DL (3.2-5.2); ALKALINE PHOSPHATASE 130 U/L (35-104); ALT/SGPT 13 U/L (7.0-40); AST/SGOT < 8 U/L (<34); BILIRUBIN,DIRECT 0.3 MG/DL (<0.4); BILIRUBIN,TOTAL 0.9 MG/DL (0.3-1.2); BLOOD UREA NITROGEN 14 MG/DL (9-23); CALCIUM LEVEL 9.3 MG/DL (8.5-10.1); CARBON DIOXIDE LEVEL 23 MMOL/L (20-31); CHLORIDE LEVEL 107 MMOL/L (98-107); CREATININE FOR GFR 0.68 MG/DL (0.55-1.30); GLOMERULAR FILTRATION RATE > 60.0 (>60); GLUCOSE, FASTING 109 MG/DL (60-100); SODIUM LEVEL 138 MMOL/L (136-145); TOTAL PROTEIN 6.8 G/DL (5.7-8.2)
[2023-12-30 07:20] LABS: HCG, SERUM QUALITATIVE NEGATIVE (NEGATIVE)
[2023-12-30 07:39] VITALS: BP 124/79; TEMP 97.2; O2SAT 100
[2023-12-30] MEDS: ONDANSETRON 4MG ORAL DISINTEGRATING TAB PO ONE (07:50)
[2023-12-30] MEDS ORDERED: ONDA-282 PO (08:26)
== END 2023-12-30 08:39 | disposition home or self-care (01) ==
LOC: M ED 06:17
DX: R11.2 Nausea with vomiting, unspecified (principal); Z88.5 Allergy status to narcotic agent

== ENCOUNTER → 2024-01-05 | Outpatient (REF) | payer MEDICAID, OTHER ==
[~2024-01-05] MED LIST changes: +CARA1TAB6 PO; +PROT1TAB2 PO
== END ==
LOC: M SFHCPLAZ 08:20
DX: R10.13 Epigastric pain (principal)

== ENCOUNTER 2024-01-08 05:05 | Emergency (ER) | payer OTHER ==
[~2024-01-08] VITALS: Ht 157.5 cm; Wt 109.7 kg
[~2024-01-08 05:05] MED LIST changes: -CARA1TAB6 PO; -PROT1TAB2 PO
[2024-01-08 05:32] LABS: BASO # 0.1 10^3/uL (0.0-0.2); BASO % 0.5 % (0.0-1.0); EOS % 0.3 % (0.0-3.0); HEMATOCRIT 39.5 % (36.0-47.0); HEMOGLOBIN 12.5 g/dl (12.0-15.5); LYMPH # 2.4 10^3/uL (1.5-5.0); LYMPH % 21.1 % (24.0-44.0); MEAN CORPUSCULAR HEMOGLOBIN 27.2 pg (27.0-33.0); MEAN CORPUSCULAR HGB CONC 31.6 g/dl (32.0-36.5); MEAN CORPUSCULAR VOLUME 86.1 fl (80.0-96.0); MONO # 0.7 10^3/uL (0.0-0.8); MONO % 5.8 % (2.0-8.0); NEUTROPHILS # 8.1 10^3/uL (1.5-8.5); NEUTROPHILS % 71.9 % (36.0-66.0); PLATELET COUNT, AUTOMATED 275 10^3/uL (150-450); RED BLOOD COUNT 4.59 10^6/uL (4.00-5.40); WHITE BLOOD COUNT 11.3 10^3/uL (4.0-10.0)
[2024-01-08 05:55] LABS: LIPASE 32 U/L (12-53)
[2024-01-08 05:56] LABS: HCG, SERUM QUALITATIVE NEGATIVE (NEGATIVE)
[2024-01-08 05:57] LABS: ALBUMIN 3.6 G/DL (3.2-5.2); ALKALINE PHOSPHATASE 113 U/L (35-104); ALT/SGPT 10 U/L (7.0-40); AST/SGOT 10 U/L (<34); BILIRUBIN,DIRECT 0.2 MG/DL (<0.4); BILIRUBIN,TOTAL 0.7 MG/DL (0.3-1.2); BLOOD UREA NITROGEN 13 MG/DL (9-23); CALCIUM LEVEL 8.8 MG/DL (8.5-10.1); CARBON DIOXIDE LEVEL 24 MMOL/L (20-31); CHLORIDE LEVEL 109 MMOL/L (98-107); CREATININE FOR GFR 0.72 MG/DL (0.55-1.30); GLOMERULAR FILTRATION RATE > 60.0 (>60); GLUCOSE, FASTING 108 MG/DL (60-100); POTASSIUM SERUM 4.2 MMOL/L (3.5-5.1); SODIUM LEVEL 139 MMOL/L (136-145); TOTAL PROTEIN 6.8 G/DL (5.7-8.2)
[2024-01-08] MEDS: PANTOPRAZOLE 40MG VIAL IV ONE (06:36)
[2024-01-08] MEDS ORDERED: ISOVUE-370 76% 100ML VIAL As Ordered ONE (06:40)
[2024-01-08] MEDS ORDERED: CARA1TAB6 PO (07:29)
[2024-01-08] MEDS ORDERED: PROT1TAB2 PO (07:29)
[2024-01-08 07:38] VITALS: BP 124/74; TEMP 98.6; O2SAT 98
== END 2024-01-08 07:45 | disposition home or self-care (01) ==
LOC: M ED 05:05
DX: R10.9 Unspecified abdominal pain (principal); K21.9 Gastro-esophageal reflux disease without esophagitis; K58.9 Irritable bowel syndrome, unspecified; F12.10 Cannabis abuse, uncomplicated; Z88.5 Allergy status to narcotic agent; Z91.09 Other allergy status, other than to drugs and biological substances; Z79.1 Long term (current) use of non-steroidal anti-inflammatories (NSAID); Z79.899 Other long term (current) drug therapy
CPT/HCPCS: 74177; 80048; 80076; 81001; 83690; 84703; 85025; 96374; 99284; J2470; Q9967

== ENCOUNTER 2024-01-10 09:07 | Emergency (ER) | payer OTHER ==
[~2024-01-10] VITALS: Ht 157.5 cm; Wt 105.0 kg
[~2024-01-10 09:07] MED LIST changes: +CARA1TAB6 PO; +PROT1TAB2 PO
[2024-01-10 09:55] LABS: BASO # 0.1 10^3/uL (0.0-0.2); BASO % 0.6 % (0.0-1.0); HEMATOCRIT 38.6 % (36.0-47.0); HEMOGLOBIN 12.3 g/dl (12.0-15.5); LYMPH # 1.5 10^3/uL (1.5-5.0); LYMPH % 12.5 % (24.0-44.0); MEAN CORPUSCULAR HEMOGLOBIN 27.5 pg (27.0-33.0); MEAN CORPUSCULAR HGB CONC 31.9 g/dl (32.0-36.5); MEAN CORPUSCULAR VOLUME 86.4 fl (80.0-96.0); MONO # 0.8 10^3/uL (0.0-0.8); MONO % 6.1 % (2.0-8.0); NEUTROPHILS # 9.9 10^3/uL (1.5-8.5); NEUTROPHILS % 80.3 % (36.0-66.0); PLATELET COUNT, AUTOMATED 256 10^3/uL (150-450); RED BLOOD COUNT 4.47 10^6/uL (4.00-5.40); WHITE BLOOD COUNT 12.4 10^3/uL (4.0-10.0)
[2024-01-10 10:16] LABS: LIPASE 29 U/L (12-53)
[2024-01-10 10:19] LABS: HCG, SERUM QUALITATIVE NEGATIVE (NEGATIVE)
[2024-01-10 10:20] LABS: ALBUMIN 3.7 G/DL (3.2-5.2); ALKALINE PHOSPHATASE 111 U/L (35-104); ALT/SGPT 10 U/L (7.0-40); AST/SGOT < 8 U/L (<34); BILIRUBIN,DIRECT 0.4 MG/DL (<0.4); BILIRUBIN,TOTAL 1.2 MG/DL (0.3-1.2); BLOOD UREA NITROGEN 10 MG/DL (9-23); CALCIUM LEVEL 9.2 MG/DL (8.5-10.1); CARBON DIOXIDE LEVEL 26 MMOL/L (20-31); CHLORIDE LEVEL 107 MMOL/L (98-107); CREATININE FOR GFR 0.71 MG/DL (0.55-1.30); GLOMERULAR FILTRATION RATE > 60.0 (>60); GLUCOSE, FASTING 102 MG/DL (60-100); POTASSIUM SERUM 3.7 MMOL/L (3.5-5.1); SODIUM LEVEL 139 MMOL/L (136-145); TOTAL PROTEIN 7.1 G/DL (5.7-8.2)
[2024-01-10] MEDS: GASTROGRAFIN SOLUTION 30ML PO SCH (11:02)
[2024-01-10] MEDS: METOCLOPRAMIDE INJ 10MG/2ML VIAL IV ONE (11:18)
[2024-01-10] MEDS: KETOROLAC 30 MG/ML 1ML VIAL IV ONE (11:18)
[2024-01-10] MEDS ORDERED: ONDA-83 PO (11:30)
[2024-01-10] MEDS ORDERED: IBUP80TA PO (11:30)
[2024-01-10] MEDS ORDERED: MM S100C PO (11:30)
[2024-01-10] MEDS ORDERED: HYDR-3363 PO (11:30)
[2024-01-10] MEDS ORDERED: HOME MED LIST COMPLETE! XX SCH (11:30)
[2024-01-10] MEDS ORDERED: SUCR1TA PO (11:30)
[2024-01-10] MEDS ORDERED: CLAR10TA7 PO (11:30)
[2024-01-10] MEDS ORDERED: LEXA5TAB13 PO (11:30)
[2024-01-10] MEDS ORDERED: ISOVUE-370 76% 100ML VIAL As Ordered ONE (12:26)
[2024-01-10] MEDS ORDERED: PROT1TAB2 PO (14:45)
[2024-01-10 15:13] VITALS: BP 103/66; TEMP 98.6; O2SAT 100
== END 2024-01-10 15:23 | disposition home or self-care (01) ==
LOC: EDBD 09:07 → M ED 09:07
DX: R10.9 Unspecified abdominal pain (principal); K21.9 Gastro-esophageal reflux disease without esophagitis; F12.10 Cannabis abuse, uncomplicated; Z88.5 Allergy status to narcotic agent; Z91.09 Other allergy status, other than to drugs and biological substances; Z79.1 Long term (current) use of non-steroidal anti-inflammatories (NSAID); Z79.899 Other long term (current) drug therapy
CPT/HCPCS: 71275; 74177; 80048; 80076; 83690; 84484; 84703; 85025; 93005; 96374; 99285; J1885; J2765; Q9963; Q9967

== ENCOUNTER 2024-09-07 20:30 | Emergency (ER) | payer OTHER ==
[~2024-09-07] VITALS: Ht 157.5 cm; Wt 104.5 kg
[~2024-09-07 20:30] MED LIST changes: +CLAR10TA7 PO; +LEXA5TAB13 PO; +MM S100C PO; +ONDA-83 PO; +SUCR1TA PO
[2024-09-07] MEDS: ACETAMINOPHEN 500 MG TAB PO ONE (21:03)
[2024-09-08] MEDS: KETOROLAC 60 MG/2 ML VIAL IM ONE (03:57)
[2024-09-08] MEDS ORDERED: [UNRECOGNIZED DRUG - CODE] EX (04:37)
[2024-09-08 05:05] VITALS: BP 117/91; TEMP 97.3; O2SAT 99
== END 2024-09-08 05:10 | disposition home or self-care (01) ==
LOC: M ED 20:30
DX: T22.231A Burn of second degree of right upper arm, initial encounter (principal); T24.211A Burn of second degree of right thigh, initial encounter; T21.22XA Burn of second degree of abdominal wall, initial encounter; K21.9 Gastro-esophageal reflux disease without esophagitis; F41.9 Anxiety disorder, unspecified; F32.A Depression, unspecified; Z88.5 Allergy status to narcotic agent; Z91.09 Other allergy status, other than to drugs and biological substances; Z79.1 Long term (current) use of non-steroidal anti-inflammatories (NSAID); Z79.2 Long term (current) use of antibiotics; Z79.899 Other long term (current) drug therapy; T31.0 Burns involving less than 10% of body surface
CPT/HCPCS: 96372; 99284; J1885

== ENCOUNTER 2024-09-10 08:54 | Emergency (ER) | payer OTHER ==
[~2024-09-10] VITALS: Ht 157.5 cm; Wt 95.1 kg
[~2024-09-10 08:54] MED LIST changes: +[UNRECOGNIZED DRUG - CODE] EX
[2024-09-10] MEDS ORDERED: CEPH500C PO (11:11)
[2024-09-10 11:23] VITALS: BP 121/71; TEMP 98.2; O2SAT 99
[2024-09-10] MEDS: BOOSTRIX VACCINE (TETANUS/DIPHTH/ACEL. PERTUSSIS) 0.5 ML SYR IM ONE (11:45)
== END 2024-09-10 11:57 | disposition home or self-care (01) ==
LOC: M ED 08:54
DX: Z48.00 Encounter for change or removal of nonsurgical wound dressing (principal); Z88.5 Allergy status to narcotic agent; Z91.09 Other allergy status, other than to drugs and biological substances; Z23 Encounter for immunization; Z79.1 Long term (current) use of non-steroidal anti-inflammatories (NSAID); Z79.2 Long term (current) use of antibiotics; Z79.899 Other long term (current) drug therapy

== ENCOUNTER 2024-09-15 15:55 | Emergency (ER) | payer OTHER ==
[~2024-09-15] VITALS: Ht 157.5 cm; Wt 105.0 kg
[~2024-09-15 15:55] MED LIST changes: +CEPH500C PO
[2024-09-15 18:56] LABS: BASO # 0.1 10^3/uL (0.0-0.2); BASO % 0.4 % (0.0-1.0); EOS # 0.0 10^3/uL (0.0-0.5); EOS % 0.0 % (0.0-3.0); LYMPH # 1.4 10^3/uL (1.5-5.0); LYMPH % 10.3 % (24.0-44.0); MONO # 0.6 10^3/uL (0.0-0.8); MONO % 4.4 % (2.0-8.0); NEUTROPHILS # 11.3 10^3/uL (1.5-8.5); NEUTROPHILS % 84.6 % (36.0-66.0); PLATELET COUNT, AUTOMATED 337 10^3/uL (150-450)
[2024-09-15 19:18] LABS: CALCIUM LEVEL 9.5 MG/DL (8.5-10.1); CARBON DIOXIDE LEVEL 26 MMOL/L (20-31); CHLORIDE LEVEL 104 MMOL/L (98-107); CK-MB VALUE MASS < 1.0 NG/ML (<3.6); CREATININE FOR GFR 0.72 MG/DL (0.55-1.30); GLOMERULAR FILTRATION RATE > 90.0 (>60); POTASSIUM SERUM 4.5 MMOL/L (3.5-5.1); SODIUM LEVEL 141 MMOL/L (136-145)
[2024-09-15 19:19] LABS: CPK CREATINE PHOSPHOKINASE 46 U/L (34-145)
[2024-09-15 19:22] LABS: HCG, SERUM QUALITATIVE NEGATIVE (NEGATIVE)
[2024-09-15] MEDS ORDERED: ISOVUE-370 76% 100 ML VIAL As Ordered ONE (19:34)
[2024-09-15 21:01] VITALS: BP 137/88; TEMP 98.3; O2SAT 100
== END 2024-09-15 21:12 | disposition home or self-care (01) ==
LOC: M ED 15:55 → EDBD 15:55 → M ED 21:12
DX: F41.9 Anxiety disorder, unspecified (principal); F17.290 Nicotine dependence, other tobacco product, uncomplicated; F12.10 Cannabis abuse, uncomplicated; Z88.5 Allergy status to narcotic agent; Z91.09 Other allergy status, other than to drugs and biological substances; Z79.2 Long term (current) use of antibiotics; Z79.1 Long term (current) use of non-steroidal anti-inflammatories (NSAID); Z79.899 Other long term (current) drug therapy
CPT/HCPCS: 36415; 71045; 71275; 80048; 82550; 82553; 84484; 84703; 85025; 85379; 93005; 99284; Q9967

== ENCOUNTER → 2024-09-26 | Outpatient (CLI) | payer OTHER | LOC: M PLAIMG 16:44 | PROVIDERS: ATTEND Family Medicine | DX: G44.86 Cervicogenic headache (principal) ==